=== PATIENT | male | born 1980 | race Caucasian/White ===

== ENCOUNTER 2018-06-14 15:22 | Emergency (ER) | payer SELFPAY ==
[2018-06-14] MEDS ORDERED: ONDANSETRON HCL INJ/PF 4 MG/2 ML SDV IV ONE ×2 (16:48→18:12)
[2018-06-14] MEDS ORDERED: METOCLOPRAMIDE HCL INJ/PF 10 MG/2 ML SDV IV ONE (16:48)
--- NOTE | 2018-06-14 16:49 | ER Document Report ---
ED Medical Screen (RME) - General Chief Complaint: Chest Pain Stated Complaint: CHEST PAIN, VOMITING, CONSTIPATED Time Seen by Provider: 06/14/18 16:38 Primary Care Provider: MELIZA FRAIRE MD [Primary Care Provider] - Follow up as needed Mode of Arrival: Wheelchair Information source: Patient Notes: This is a 38-year-old man who is brought into the emergency room by family because of nausea, vomiting, chest and abdominal pain. Patient states he awoke with symptoms this morning. Patient does have a past medical history of recurrent abdominal pain but is not been seen here recently. - Related Data Allergies/Adverse Reactions: oxycodone [Oxycodone] Allergy (Unknown, Verified 12/24/13 11:50) hydrocodone [Hydrocodone] Adverse Reaction (Mild, Verified 12/23/13 03:37) Nausea Past Medical History - Social History Chew tobacco use (# tins/day): No Frequency of alcohol use: None Drug Abuse: Marijuana - Past Medical History Cardiac Medical History: Denies: Hx Coronary Artery Disease, Hx Heart Attack, Hx Hypertension Pulmonary Medical History: Reports: Hx Asthma - as child Denies: Hx Bronchitis, Hx COPD, Hx Pneumonia, Hx Tuberculosis Neurological Medical History: Denies: Hx Cerebrovascular Accident, Hx Seizures Renal/ Medical History: Reports: Hx Kidney Stones. Denies: Hx Peritoneal Dialysis GI Medical History: Reports: Hx Crohn's Disease - undiagnnosed, Hx Gastroesophageal Reflux Disease, Hx Irritable Bowel Musculoskeltal Medical History: Denies Hx Arthritis Past Surgical History: Reports: Hx Abdominal Surgery. Denies: Hx Pacemaker, Hx Tonsillectomy - Immunizations Hx Diphtheria, Pertussis, Tetanus Vaccination: Yes Physical Exam - Vital signs Vitals: Temp Pulse Resp BP Pulse Ox 98.6 F 76 16 136/98 H 98 06/14/18 15:39 06/14/18 15:39 06/14/18 15:39 06/14/18 15:39 06/14/18 15:39 Course - Vital Signs Vital signs: Temp Pulse Resp BP Pulse Ox 98.6 F 76 16 136/98 H 98 06/14/18 15:39 06/14/18 15:39 06/14/18 15:39 06/14/18 15:39 06/14/18 15:39 Doctor's Discharge - Discharge Referrals: MELIZA FRAIRE MD [Primary Care Provider] - Follow up as needed
[2018-06-14] MEDS: NORMAL SALINE 1000 ML 1,000 ML IV PRN ×2 (17:08→18:49)
[2018-06-14 17:22] LABS: ABSOLUTE BASOPHILS # (AUTO) 0.1 10^3/uL (0.0-0.2); ABSOLUTE LYMPHOCYTES (AUTO) 1.2 10^3/uL (0.5-4.7); ABSOLUTE MONOCYTES (AUTO) 0.5 10^3/uL (0.1-1.4); ABSOLUTE NEUT (AUTO) 13.6 10^3/uL (1.7-8.2); BASOPHILS % (AUTO) 0.3 % (0-2); HEMATOCRIT 47.2 % (37.9-51.0); HEMOGLOBIN 16.4 g/dL (13.5-17.0); LYMPHOCYTES % (AUTO) 7.7 % (13-45); MEAN CORPUSCULAR HEMOGLOBIN 30.8 pg (27.0-33.4); MEAN CORPUSCULAR HGB CONC 34.7 g/dL (32.0-36.0); MEAN CORPUSCULAR VOLUME 89 fl (80-97); MONOCYTES % (AUTO) 3.4 % (3-13); PLATELET COUNT 335 10^3/uL (150-450); RED BLOOD COUNT 5.32 10^6/uL (4.35-5.55); SEGMENTED NEUTROPHILS % (AUTO) 88.6 % (42-78); TOTAL CELLS COUNTED % (AUTO) 100 %; WHITE BLOOD COUNT 15.3 10^3/uL (4.0-10.5)
[2018-06-14 17:54] LABS: APPEARANCE,URINE TURBID; BILIRUBIN,URINE SMALL (NEGATIVE); COLOR,URINE YELLOW; GLUCOSE, URINE NEGATIVE (NEGATIVE); KETONES,URINE 20 mg/dL (NEGATIVE); LEUKOCYTE ESTERASE,URINE NEGATIVE (NEGATIVE); NITRITE,URINE NEGATIVE (NEGATIVE); PROTEIN,URINE 100 mg/dL (NEGATIVE); URINE SPECIFIC GRAVITY 1.036
[2018-06-14 17:56] LABS: ALANINE AMINOTRANSFERASE 27 U/L (21-72); ALBUMIN 5.9 g/dL (3.5-5.0); ALKALINE PHOSPHATASE 76 U/L (38-126); ANION GAP 19 (5-19); ASPARTATE AMINO TRANSFERASE 32 U/L (17-59); BILIRUBIN,DIRECT 0.4 mg/dL (0.0-0.4); BILIRUBIN,TOTAL 0.9 mg/dL (0.2-1.3); BLOOD UREA NITROGEN 26 mg/dL (7-20); CALCIUM 11.5 mg/dL (8.4-10.2); CARBON DIOXIDE 22 mmol/L (22-30); CHLORIDE 102 mmol/L (98-107); GLUCOSE 160 mg/dL (75-110); LIPASE 23.6 U/L (23-300); SODIUM 143.1 mmol/L (137-145); TOTAL PROTEIN 9.9 g/dL (6.3-8.2)
[2018-06-14] MEDS ORDERED: FENTANYL CITRATE INJ/PF 100 MCG/2 ML AMPUL IV ONE (17:59)
--- NOTE | 2018-06-14 18:00 | ER Document Report ---
ED General - General Chief Complaint: Chest Pain Stated Complaint: CHEST PAIN, VOMITING, CONSTIPATED Time Seen by Provider: 06/14/18 16:38 Primary Care Provider: MELIZA FRAIRE MD [ACTIVE STAFF] - Follow up as needed Mode of Arrival: Wheelchair Notes: 38-year-old male to emergency with chief complaint of abdominal pain chest pain. Pain starts in the abdomen and radiates up in the chest. Nausea and vomiting. Diarrhea. States that he is concerned because he has had a bowel obstruction in the past. Fever and chills. Like he was going to pass out at home. Patient is here with his . - HPI Onset: This morning Onset/Duration: Gradual, Constant Quality of pain: Achy Severity: Moderate Pain Level: 3 Associated symptoms: Diarrhea, Fever, Nausea, Vomiting - Related Data Allergies/Adverse Reactions: oxycodone [Oxycodone] Allergy (Unknown, Verified 12/24/13 11:50) hydrocodone [Hydrocodone] Adverse Reaction (Mild, Verified 12/23/13 03:37) Nausea Past Medical History - General Information source: Patient - Social History Smoking Status: Current Every Day Smoker Chew tobacco use (# tins/day): No Frequency of alcohol use: None Drug Abuse: Marijuana Family History: Other - Intestinal problems Patient has suicidal ideation: No Patient has homicidal ideation: No - Past Medical History Cardiac Medical History: Denies: Hx Coronary Artery Disease, Hx Heart Attack, Hx Hypertension Pulmonary Medical History: Reports: Hx Asthma - as child Denies: Hx Bronchitis, Hx COPD, Hx Pneumonia, Hx Tuberculosis Neurological Medical History: Denies: Hx Cerebrovascular Accident, Hx Seizures Renal/ Medical History: Reports: Hx Kidney Stones. Denies: Hx Peritoneal Dialysis GI Medical History: Reports: Hx Crohn's Disease - undiagnnosed, Hx Gastroesophageal Reflux Disease, Hx Irritable Bowel Musculoskeletal Medical History: Denies Hx Arthritis Past Surgical History: Reports: Hx Abdominal Surgery. Denies: Hx Pacemaker, Hx Tonsillectomy - Immunizations Hx Diphtheria, Pertussis, Tetanus Vaccination: Yes Review of Systems - Review of Systems Constitutional: Fever. denies: Malaise, Weakness EENT: denies: Throat pain, Difficulty swallowing, Mouth pain Cardiovascular: Chest pain. denies: Palpitations, Heart racing Respiratory: denies: Cough, Hurts to breathe, Short of breath Gastrointestinal: Abdominal pain, Diarrhea, Nausea, Vomiting Genitourinary: denies: Burning, Dysuria, Discharge Musculoskeletal: denies: Back pain, Gout, Joint pain Skin: denies: Dryness, Lesions, Lumps, Rash Hematologic/Lymphatic: denies: Anemia, Blood clots, Easy bleeding, Easy bruising Neurological/Psychological: denies: Confusion, Weakness, Numbness Physical Exam - Vital signs Vitals: Temp Pulse Resp BP Pulse Ox 98.6 F 76 16 136/98 H 98 06/14/18 15:39 06/14/18 15:39 06/14/18 15:39 06/14/18 15:39 06/14/18 15:39 Interpretation: Normal - General General appearance: Appears well, Alert - HEENT Head: Normocephalic, Atraumatic Eyes: Normal Pupils: PERRL - Respiratory Respiratory status: No respiratory distress Chest status: Nontender Breath sounds: Normal Chest palpation: Normal - Cardiovascular Rhythm: Regular Heart sounds: Normal auscultation Murmur: No - Abdominal Inspection: Normal Distension: No distension Bowel sounds: Hyperactive Tenderness: Tender - Mild diffuse tenderness but no guarding or rebound. Organomegaly: No organomegaly - Back Back: Normal, Nontender - Extremities General upper extremity: Normal inspection, Nontender, Normal color, Normal ROM, Normal temperature General lower extremity: Normal inspection, Nontender, Normal color, Normal ROM, Normal temperature, Normal weight bearing. No: Miriam's sign - Neurological Neuro grossly intact: Yes Cognition: Normal Orientation: AAOx4 Cruz Coma Scale Eye Opening: Spontaneous Cruz Coma Scale Verbal: Oriented [place] Coma Scale Motor: Obeys Commands Cruz Coma Scale Total: 15 Speech: Normal Motor strength normal: LUE, RUE, LLE, RLE Sensory: Normal - Psychological Associated symptoms: Normal affect, Normal mood - Skin Skin Temperature: Warm Skin Moisture: Dry Skin Color: Normal Course - Re-evaluation Re-evalutation: 06/14/18 19:10 Laboratory 06/14/18 06/14/18 06/14/18 17:07 17:07 17:07 WBC 15.3 H RBC 5.32 Hgb 16.4 Hct 47.2 MCV 89 MCH 30.8 MCHC 34.7 RDW 14.0 Plt Count 335 Seg Neutrophils % 88.6 H Lymphocytes % 7.7 L Monocytes % 3.4 Eosinophils % 0.0 Basophils % 0.3 Absolute Neutrophils 13.6 H Absolute Lymphocytes 1.2 Absolute Monocytes 0.5 Absolute Eosinophils 0.0 Absolute Basophils 0.1 Sodium 143.1 Potassium 5.0 Chloride 102 Carbon Dioxide 22 Anion Gap 19 BUN 26 H Creatinine 1.28 H Est GFR ( Amer) > 60 Est GFR (Non-Af Amer) > 60 Glucose 160 H Calcium 11.5 H Total Bilirubin 0.9 Direct Bilirubin 0.4 Neonat Total Bilirubin Not Reportable Neonat Direct Bilirubin Not Reportable Neonat Indirect Bili Not Reportable AST 32 ALT 27 Alkaline Phosphatase 76 Troponin I < 0.012 Total Protein 9.9 H Albumin 5.9 H Lipase 23.6 Urine Color Urine Appearance Urine pH Ur Specific [place] Urine Protein Urine Glucose (UA) Urine Ketones Urine Blood Urine Nitrite Urine Bilirubin Urine Urobilinogen Ur Leukocyte Esterase Urine WBC (Auto) Urine RBC (Auto) Urine Bacteria (Auto) Squamous Epi Cells Auto Urine Mucus (Auto) Urine Ascorbic Acid Urine Opiates Screen Urine Methadone Screen Ur Barbiturates Screen Ur Phencyclidine Scrn Ur Amphetamines Screen U Benzodiazepines Scrn Urine Cocaine Screen U Marijuana (THC) Screen 06/14/18 06/14/18 17:20 17:20 WBC RBC Hgb Hct MCV MCH MCHC RDW Plt Count Seg Neutrophils % Lymphocytes % Monocytes % Eosinophils % Basophils % Absolute Neutrophils Absolute Lymphocytes Absolute Monocytes Absolute Eosinophils Absolute Basophils Sodium Potassium Chloride Carbon Dioxide Anion Gap BUN Creatinine Est GFR ( Amer) Est GFR (Non-Af Amer) Glucose Calcium Total Bilirubin Direct Bilirubin Neonat Total Bilirubin Neonat Direct Bilirubin Neonat Indirect Bili AST ALT Alkaline Phosphatase Troponin I Total Protein Albumin Lipase Urine Color YELLOW Urine Appearance TURBID Urine pH 5.0 Ur Specific [place] 1.036 Urine Protein 100 H Urine Glucose (UA) NEGATIVE Urine Ketones 20 H Urine Blood NEGATIVE Urine Nitrite NEGATIVE Urine Bilirubin SMALL H Urine Urobilinogen 4.0 H Ur Leukocyte Esterase NEGATIVE Urine WBC (Auto) 2 Urine RBC (Auto) 2 Urine Bacteria (Auto) 3+ Squamous Epi Cells Auto 2 Urine Mucus (Auto) MANY Urine Ascorbic Acid 40 H Urine Opiates Screen NEGATIVE Urine Methadone Screen NEGATIVE Ur Barbiturates Screen NEGATIVE Ur Phencyclidine Scrn NEGATIVE Ur Amphetamines Screen NEGATIVE U Benzodiazepines Scrn NEGATIVE Urine Cocaine Screen NEGATIVE U Marijuana (THC) Screen UNCONFIRMED POSITIVE 06/14/18 19:58 Patient is feeling much better. Has been drinking water while in the ER. A review of his records show that he has had at least [address] scan was initially ordered because of the oral contrast which is preferred by most of the surgeons here. I did this so that the patient does not have to have an unneeded amount of waiting in the event that we decided to do the CT scan. After realizing that the patient had had multiple CT scans I thought it would be best to have a informed decision making process with the patient as he is feeling better, drinking water and has not had any further vomiting. Patient states that he would feel better going home and he wants to go home and he would come back if he gets worse. Shortly after pts came back into the room. She became argumentative. She wanted to know why I was not doing a CT scan and then began making blanket statements that I was "sending him home", and "not taking him seriously". I tried to explain to the patient's that I was informing the patient of the risks and benefits of CT scan and giving him an option to see how things go over the next 24 hours which is proven to be an extremely effective way to decrease radiation exposure. I did finally ask that the please stop being so argumentative with me and I then focused all my attention on the patient. Patient still states that he feels much better and would like to go home. I spoke to him about 24-hour follow-up. He has requested some pain medicine to go home with. I stated that I do not feel comfortable giving him pain medication as I do not want him to be masking abdominal pain which needs to be reevaluated. I will send him home with nausea medication only. 06/14/18 22:24 06/14/18 22:26 - Vital Signs Vital signs: Temp Pulse Resp BP Pulse Ox 98.4 F 65 17 122/62 96 06/14/18 20:36 06/14/18 20:36 06/14/18 20:36 06/14/18 20:36 06/14/18 20:36 - Laboratory Result Diagrams: 06/14/18 17:07 06/14/18 17:07 Laboratory results interpreted by me: 06/14/18 06/14/18 06/14/18 17:07 17:07 17:20 WBC 15.3 H Seg Neutrophils % 88.6 H Lymphocytes % 7.7 L Absolute Neutrophils 13.6 H BUN 26 H Creatinine 1.28 H Glucose 160 H Calcium 11.5 H Total Protein 9.9 H Albumin 5.9 H Urine Protein 100 H Urine Ketones 20 H Urine Bilirubin SMALL H Urine Urobilinogen 4.0 H Urine Ascorbic Acid 40 H - EKG Interpretation by Me EKG shows normal: Sinus rhythm, [place], Intervals, QRS Complexes, ST-T Waves Discharge - Discharge Clinical Impression: Vomiting and diarrhea, Dehydration Abdominal pain Qualifiers: Abdominal location: unspecified location Qualified Code(s): R10.9 - Unspecified abdominal pain Condition: Good Disposition: HOME, SELF-CARE Instructions: Antinausea Medication ([facility]), Diarrhea, Nonspecific ([facility]), Nausea or Vomiting, Nonspecific ([facility]), Observation for Appendicitis ([facility]) Additional Instructions: You have been seen in the ER today for your nausea, vomiting, diarrhea and abdominal pain. Uncertain the exact cause at this time. We talked extensively about the pros and cons of a CT scan and you have decided that you would like to hold off on that at this time. As mentioned to you it is an acceptable plan at this time to see how you do over the next 12-24 hours. If your symptoms are getting worse in the next 12-24 hours you should return for repeat evaluation. At that time a CT scan may seem like a more obvious choice. Abdominal pain workups can be very difficult to figure out. Our job in the emergency department is to rule out emergencies. You do not appear to have a surgical emergency at this time however things can change. You may take the nausea medication as needed for nausea and vomiting. Advance your diet slowly. Focus only on water and clear liquids today. You may take Tylenol for pain. Do not exceed 3 g in a 24-hour period. In the event that you begin having blood in your stool, vomiting bright red blood for any other concerns please return as well. Referrals: MELIZA FRAIRE MD [ACTIVE STAFF] - Follow up as needed
[2018-06-14] MEDS ORDERED: FAMOTIDINE INJ/PF 20 MG/2 ML SDV IV ONE (18:12)
[2018-06-14 18:35] LABS: URINE AMPHETAMINES SCREEN NEGATIVE; URINE BARBITURATES SCREEN NEGATIVE; URINE BENZODIAZEPINES SCREEN NEGATIVE; URINE COCAINE SCREEN NEGATIVE; URINE MARIJUANA (THC) SCREEN UNCONFIRMED POSITIVE; URINE METHADONE SCREEN NEGATIVE; URINE PHENCYCLIDINE SCREEN NEGATIVE
--- NOTE | 2018-06-14 19:03 | RADIOLOGY REPORT (SQ) ---
EXAM DESCRIPTION: ACUTE ABDOMEN SERIES COMPLETED DATE/TIME: 06/14/2018 6:47 pm REASON FOR STUDY: abd pain COMPARISON: 12/25/2013 NUMBER OF VIEWS: Three views. TECHNIQUE: Frontal chest, supine abdomen and upright/decubitus abdomen radiographic images acquired. LIMITATIONS: None. FINDINGS: CHEST: Lungs clear of infiltrates. FREE AIR: None. No abnormal gas collections. BOWEL GAS PATTERN: Nonobstructive pattern. No dilated loops or air fluid levels. CALCIFICATIONS: No suspicious calcifications. HARDWARE: None in the abdomen. SOFT TISSUES: No gross mass or suggestion of organomegaly. BONES: No acute fracture. No worrisome bone lesions. OTHER: No other significant finding. IMPRESSION: NO RADIOGRAPHIC EVIDENCE FOR ACUTE ABDOMINAL DISEASE. TECHNICAL DOCUMENTATION: JOB ID: [id number])- All Rights Reserved Reading location - IP/workstation name: [email or web address]
[2018-06-14] MEDS ORDERED: ONDANSETRON ODT 4 MG TAB (6 TAB/ER DISP) PO PRN (20:24)
[2018-06-14 20:38] VITALS: BP 122/62
--- NOTE | 2018-06-14 20:51 | EKG REPORT ---
SEVERITY:- NORMAL ECG - SINUS RHYTHM : Confirmed by: Amy Valenzuela MD 14-Jun-2018 20:50:39
== END 2018-06-14 21:00 | disposition home or self-care (01) ==
LOC: ER 15:22
DX: E86.0 Dehydration (principal); R11.2 Nausea with vomiting, unspecified; R19.7 Diarrhea, unspecified; R10.9 Unspecified abdominal pain; R07.9 Chest pain, unspecified; R50.9 Fever, unspecified; F17.200 Nicotine dependence, unspecified, uncomplicated
CPT/HCPCS: 93005; 96376; 99284; 96361; 96374; 96375; 36415; 83690; 85025; 80053; 81001; 84484; 80307; 74022; 93010; J3010; J2765; J2405; J7030; S0028

== ENCOUNTER 2018-12-02 21:05 | Emergency (ER) | payer OTHER ==
[2018-12-02] MEDS ORDERED: ONDANSETRON HCL INJ/PF 4 MG/2 ML SDV IV ONE (23:20)
[2018-12-02] MEDS ORDERED: NORMAL SALINE 1000 ML 1,000 ML IV ONE (23:20)
--- NOTE | 2018-12-02 23:22 | ER Document Report ---
ED Medical Screen (RME) - General Chief Complaint: Chest Pain Stated Complaint: CHEST PAIN,VOMITING,NAUSEA Time Seen by Provider: 12/02/18 23:16 Mode of Arrival: Wheelchair Information source: Patient Notes: 38-year-old male presented to ED for complaint of chest pain with nausea and vomiting x2 days. He states he has vomited multiple times and had one diarrheal stool today. states that while he was in the emergency room he was shaking for about 10 or 15 seconds but then was better after about 10 or 15 seconds. She states he is having cramping in his arms and legs very fatigue. She states he has a history of reflux and an intestinal obstruction where he had to have part of his intestines removed. She states he smokes 15 to 20 cigarettes a day does not drink or do any drugs. Patient is alert oriented answering. I have greeted and performed a rapid initial assessment of this patient. A comprehensive ED assessment and evaluation of the patient, analysis of test results and completion of medical decision making process will be conducted by an additional ED providers. TRAVEL OUTSIDE OF THE [place] IN LAST 30 DAYS: No - Related Data Allergies/Adverse Reactions: oxycodone [Oxycodone] Allergy (Unknown, Verified 12/24/13 11:50) hydrocodone [Hydrocodone] Adverse Reaction (Mild, Verified 12/23/13 03:37) Nausea Past Medical History - Past Medical History Cardiac Medical History: Denies: Hx Coronary Artery Disease, Hx Heart Attack, Hx Hypertension Pulmonary Medical History: Reports: Hx Asthma - as child Denies: Hx Bronchitis, Hx COPD, Hx Pneumonia, Hx Tuberculosis Neurological Medical History: Denies: Hx Cerebrovascular Accident, Hx Seizures Renal/ Medical History: Reports: Hx Kidney Stones. Denies: Hx Peritoneal Dialysis GI Medical History: Reports: Hx Crohn's Disease - undiagnnosed, Hx Gastroesophageal Reflux Disease, Hx Irritable Bowel Musculoskeltal Medical History: Denies Hx Arthritis Past Surgical History: Reports: Hx Abdominal Surgery. Denies: Hx Pacemaker, Hx Tonsillectomy - Immunizations Hx Diphtheria, Pertussis, Tetanus Vaccination: Yes Physical Exam - Vital signs Vitals: Temp Pulse Resp BP Pulse Ox 98.3 F 80 16 144/80 H 95 12/02/18 21:25 12/02/18 21:25 12/02/18 21:25 12/02/18 21:25 12/02/18 21:25 Course - Vital Signs Vital signs: Temp Pulse Resp BP Pulse Ox 98.3 F 80 16 144/80 H 95 12/02/18 21:25 12/02/18 21:25 12/02/18 21:25 12/02/18 21:25 12/02/18 21:25
--- NOTE | 2018-12-03 | RADIOLOGY REPORT (SQ) ---
XR CHEST 2 VIEWS EXAM DATE: 12/02/2018 11:20 PM CDT HISTORY: Chest pain . COMPARISON: None. FINDINGS: The heart size is within normal limits. No consolidation, pleural effusion, or pneumothorax is seen. The bony thorax is intact. IMPRESSION: No evidence of acute cardiopulmonary disease.
[2018-12-03 00:37] LABS: ABSOLUTE BASOPHILS # (AUTO) 0.1 10^3/uL (0.0-0.2); ABSOLUTE LYMPHOCYTES (AUTO) 1.9 10^3/uL (0.5-4.7); ABSOLUTE MONOCYTES (AUTO) 1.4 10^3/uL (0.1-1.4); ABSOLUTE NEUT (AUTO) 13.6 10^3/uL (1.7-8.2); BASOPHILS % (AUTO) 0.4 % (0-2); HEMATOCRIT 47.7 % (37.9-51.0); HEMOGLOBIN 16.5 g/dL (13.5-17.0); LYMPHOCYTES % (AUTO) 11.1 % (13-45); MEAN CORPUSCULAR HEMOGLOBIN 30.5 pg (27.0-33.4); MEAN CORPUSCULAR HGB CONC 34.5 g/dL (32.0-36.0); MEAN CORPUSCULAR VOLUME 88 fl (80-97); MONOCYTES % (AUTO) 8.1 % (3-13); PLATELET COUNT 326 10^3/uL (150-450); RED BLOOD COUNT 5.41 10^6/uL (4.35-5.55); RED CELL DISTRIBUTION WIDTH 13.4 % (11.5-14.0); SEGMENTED NEUTROPHILS % (AUTO) 80.4 % (42-78); TOTAL CELLS COUNTED % (AUTO) 100 %; WHITE BLOOD COUNT 16.9 10^3/uL (4.0-10.5)
[2018-12-03 00:54] LABS: ALBUMIN 5.7 g/dL (3.5-5.0); ALKALINE PHOSPHATASE 60 U/L (38-126); ANION GAP 17 (5-19); ASPARTATE AMINO TRANSFERASE 32 U/L (17-59); BILIRUBIN,DIRECT 0.2 mg/dL (0.0-0.4); BILIRUBIN,TOTAL 1.2 mg/dL (0.2-1.3); BLOOD UREA NITROGEN 50 mg/dL (7-20); CALCIUM 10.7 mg/dL (8.4-10.2); CARBON DIOXIDE 29 mmol/L (22-30); CHLORIDE 89 mmol/L (98-107); CREATINE KINASE 264 U/L (55-170); GLUCOSE 118 mg/dL (75-110); POTASSIUM 4.5 mmol/L (3.6-5.0); TOTAL PROTEIN 9.2 g/dL (6.3-8.2)
[2018-12-03 01:06] LABS: CREATINE KINASE MB 2.55 ng/mL (<4.55); TROPONIN I < 0.012 ng/mL
[2018-12-03 01:15] LABS: APPEARANCE,URINE CLEAR; BILIRUBIN,URINE NEGATIVE (NEGATIVE); COLOR,URINE YELLOW; GLUCOSE, URINE NEGATIVE (NEGATIVE); KETONES,URINE NEGATIVE (NEGATIVE); LEUKOCYTE ESTERASE,URINE NEGATIVE (NEGATIVE); NITRITE,URINE NEGATIVE (NEGATIVE); PROTEIN,URINE 30 mg/dL (NEGATIVE); URINE SPECIFIC GRAVITY 1.029; UROBILINOGEN,URINE NEGATIVE mg/dL (<2.0)
[2018-12-03 01:30] LABS: URINE AMPHETAMINES SCREEN NEGATIVE; URINE BARBITURATES SCREEN NEGATIVE; URINE BENZODIAZEPINES SCREEN NEGATIVE; URINE COCAINE SCREEN NEGATIVE; URINE MARIJUANA (THC) SCREEN UNCONFIRMED POSITIVE; URINE METHADONE SCREEN NEGATIVE; URINE PHENCYCLIDINE SCREEN NEGATIVE
[2018-12-03] MEDS ORDERED: NORMAL SALINE 1000 ML 1,000 ML IV ONE (01:31)
[2018-12-03] MEDS ORDERED: FENTANYL CITRATE INJ/PF 100 MCG/2 ML AMPUL IV ONE ×2 (01:39→04:31)
--- NOTE | 2018-12-03 01:47 | ER Document Report ---
ED General - General Chief Complaint: Chest Pain Stated Complaint: CHEST PAIN,VOMITING,NAUSEA Time Seen by Provider: 12/02/18 23:16 Primary Care Provider: MOHIT CH FNP-C [Primary Care Provider] - Follow up as needed Mode of Arrival: Wheelchair Notes: Patient is a 38-year-old male that presents to the emergency department for chief complaint of abdominal pain, nausea, vomiting diarrhea. Patient states that he has been having symptoms for a few days now, and has had several ep isodes of vomiting, and loose stools. His pain is worse in the right upper quadrant of his abdomen, he states it rather sharp in that area with radiation towards the back. He states he is had problems with his abdomen in the past, and had surgery with a partial bowel resection in the past as well. He used to see a handbag stitcher, but is been a few years, is currently only taking Prilosec 20 mg twice daily, denies any other daily prescribed medications. He currently rates his pain as a 10 out of 10 describes as constant and aching and sharp as noted above. He denies having any blood in the vomit or stool. He also reports he has had about a 30 pound weight loss over the last 6 months, he has not had a good appetite. Past Medical History: GERD Past Surgical History: Partial bowel resection Social History: Admits to smoking cigarettes, denies alcohol use or illicit drug use Family History: Reviewed and noncontributory for presenting illness Allergies: Reviewed, see documented allergy list. REVIEW OF SYSTEMS: Other than noted above, the 12 point review of systems was reviewed with the patient and were negative, all pertinent findings are included in the HPI. PHYSICAL EXAMINATION: Vital signs reviewed, nursing noted reviewed. GENERAL: Well-appearing, well-nourished and in no acute distress. HEAD: Atraumatic, normocephalic. EYES: Eyes appear normal, extraocular movements intact, sclera anicteric, conjunctiva are normal. ENT: nares patent, oropharynx clear without exudates. Moist mucous membranes. NECK: Normal range of motion, supple without lymphadenopathy LUNGS: Breath sounds clear to auscultation bilaterally and equal. No wheezes rales or rhonchi. HEART: Regular rate and rhythm without murmurs ABDOMEN: Soft, right upper quadrant tenderness to palpation, no rigidity, rebound or guarding., normoactive bowel sounds. EXTREMITIES: Nontender, good range of motion, no pitting or edema. NEUROLOGICAL: No focal neurological deficits. Moves all extremities spontaneously Motor and sensory grossly intact on exam. PSYCH: Normal mood, normal affect. SKIN: Warm, Dry, normal turgor, no rashes or lesions noted on exposed skin x TRAVEL OUTSIDE OF THE [place] IN LAST 30 DAYS: No - Related Data Allergies/Adverse Reactions: oxycodone [Oxycodone] Allergy (Unknown, Verified 12/24/13 11:50) hydrocodone [Hydrocodone] Adverse Reaction (Mild, Verified 12/23/13 03:37) Nausea Past Medical History - General Information source: Patient - Social History Smoking Status: Current Every Day Smoker Family History: Reviewed & Not Pertinent, Other - Intestinal problems - Past Medical History Cardiac Medical History: Denies: Hx Coronary Artery Disease, Hx Heart Attack, Hx Hypertension Pulmonary Medical History: Reports: Hx Asthma - as child Denies: Hx Bronchitis, Hx COPD, Hx Pneumonia, Hx Tuberculosis Neurological Medical History: Denies: Hx Cerebrovascular Accident, Hx Seizures Renal/ Medical History: Reports: Hx Kidney Stones. Denies: Hx Peritoneal Dialysis GI Medical History: Reports: Hx Crohn's Disease - undiagnnosed, Hx Gastroesophageal Reflux Disease, Hx Irritable Bowel Musculoskeletal Medical History: Denies Hx Arthritis Past Surgical History: Reports: Hx Abdominal Surgery. Denies: Hx Pacemaker, Hx Tonsillectomy - Immunizations Hx Diphtheria, Pertussis, Tetanus Vaccination: Yes Physical Exam - Vital signs Vitals: Temp Pulse Resp BP Pulse Ox 98.3 F 80 16 144/80 H 95 12/02/18 21:25 12/02/18 21:25 12/02/18 21:25 12/02/18 21:25 12/02/18 21:25 Course - Re-evaluation Re-evalutation: Patient seen and examined vital signs reviewed. Laboratory data and/or imaging were ordered as appropriate for the patient's presenting symptoms and complaint, with consideration of any critical or life threatening conditions that may be associated with their obtained history and exam as noted above. Patient was treated with IV fluids, IV analgesics and antiemetics Results were reviewed when available and demonstrated negative ultrasound right upper quadrant, and blood work demonstrated mild acute kidney injury, likely due to dehydration, increased BUN compared to creatinine, likely secondary to his nausea, vomiting diarrhea, he was given 3 L of IV fluids, CT imaging demonstrated possible pericholecystic fluid, as compared to prior, after discussing with the surgeon and came down to see him, did not feel that this was an acute abdomen or acute cholecystitis, which I agreed with after reviewing a negative ultrasound, and no other findings concerning for acute cholecystitis, he did have a leukocytosis, but this could be acute stress reactant, from vomiting. The patient was re-evaluated and was stable, speaking full sentences, did not appear in to be in any acute distress, he was asking for additional pain medication, and bring up other complaints, he told me his testicle is causing him pain, and was asking for additional doses of pain medication, did examine his testicles, there was no swelling, ecchymosis, or edema, there is no significant tenderness to palpation, bilateral horizontal lie. Evaluation was most consistent with abdominal pain, nausea, vomiting diarrhea, advised follow-up with his primary care, and gastroneurology, given referral, given prescription for Carafate and Zofran. Results were discussed with the patient at this point, after careful consideration I feel that that patient can be discharged from the emergency department, the patient was educated treatments and reasons to return to the emergency department based on their presumed diagnosis as noted above, they were advised to followup with a primary care physician in 2-3 days. Patient was agreeable to plan of care. *Note is created using voice recognition software and may contain spelling, syntax or grammatical errors. Laboratory 12/03/18 12/03/18 12/03/18 00:20 00:20 00:20 WBC 16.9 H RBC 5.41 Hgb 16.5 Hct 47.7 MCV 88 MCH 30.5 MCHC 34.5 RDW 13.4 Plt Count 326 Lymph % (Auto) 11.1 L [place] % (Auto) 8.1 Eos % (Auto) 0.0 Baso % (Auto) 0.4 Absolute Neuts (auto) 13.6 H Absolute Lymphs (auto) 1.9 Absolute Monos (auto) 1.4 Absolute Eos (auto) 0.0 Absolute Basos (auto) 0.1 Seg Neutrophils % 80.4 H Sodium 134.8 L Potassium 4.5 Chloride 89 L Carbon Dioxide 29 Anion Gap 17 BUN 50 H Creatinine 1.48 H Est GFR ( Amer) > 60 Est GFR (MDRD) Non-Af 54 L Glucose 118 H Calcium 10.7 H Total Bilirubin 1.2 Direct Bilirubin 0.2 Neonat Total Bilirubin Not Reportable Neonat Direct Bilirubin Not Reportable Neonat Indirect Bili Not Reportable AST 32 ALT 26 Alkaline Phosphatase 60 Creatine Kinase 264 H CK-MB (CK-2) 2.55 Troponin I < 0.012 Total Protein 9.2 H Albumin 5.7 H Lipase 22.5 L Urine Color Urine Appearance Urine pH Ur Specific [place] Urine Protein Urine Glucose (UA) Urine Ketones Urine Blood Urine Nitrite Urine Bilirubin Urine Urobilinogen Ur Leukocyte Esterase Urine WBC (Auto) Urine RBC (Auto) U Hyaline Cast (Auto) Urine Mucus (Auto) Urine Ascorbic Acid Urine Opiates Screen Urine Methadone Screen Ur Barbiturates Screen Ur Phencyclidine Scrn Ur Amphetamines Screen U Benzodiazepines Scrn Urine Cocaine Screen U Marijuana (THC) Screen 12/03/18 12/03/18 00:50 00:50 WBC RBC Hgb Hct MCV MCH MCHC RDW Plt Count Lymph % (Auto) [place] % (Auto) Eos % (Auto) Baso % (Auto) Absolute Neuts (auto) Absolute Lymphs (auto) Absolute Monos (auto) Absolute Eos (auto) Absolute Basos (auto) Seg Neutrophils % Sodium Potassium Chloride Carbon Dioxide Anion Gap BUN Creatinine Est GFR ( Amer) Est GFR (MDRD) Non-Af Glucose Calcium Total Bilirubin Direct Bilirubin Neonat Total Bilirubin Neonat Direct Bilirubin Neonat Indirect Bili AST ALT Alkaline Phosphatase Creatine Kinase CK-MB (CK-2) Troponin I Total Protein Albumin Lipase Urine Color YELLOW Urine Appearance CLEAR Urine pH 5.0 Ur Specific [place] 1.029 Urine Protein 30 H Urine Glucose (UA) NEGATIVE Urine Ketones NEGATIVE Urine Blood NEGATIVE Urine Nitrite NEGATIVE Urine Bilirubin NEGATIVE Urine Urobilinogen NEGATIVE Ur Leukocyte Esterase NEGATIVE Urine WBC (Auto) 1 Urine RBC (Auto) 1 U Hyaline Cast (Auto) 3 Urine Mucus (Auto) OCC Urine Ascorbic Acid NEGATIVE Urine Opiates Screen NEGATIVE Urine Methadone Screen NEGATIVE Ur Barbiturates Screen NEGATIVE Ur Phencyclidine Scrn NEGATIVE Ur Amphetamines Screen NEGATIVE U Benzodiazepines Scrn NEGATIVE Urine Cocaine Screen NEGATIVE U Marijuana (THC) Screen UNCONFIRMED POSITIVE Chest X-Ray 12/02/18 23:20 IMPRESSION: No evidence of acute cardiopulmonary disease. Abdomen Ultrasound 12/03/18 01:40 IMPRESSION: Normal RUQ-Abdominal Sonogram. Abdomen/Pelvis CT 12/03/18 03:53 IMPRESSION: Moderate pericholecystic fluid, nonspecific. Differential etiologies include cholecystitis. Consider laboratory/sonographic correlation. - Vital Signs Vital signs: Temp Pulse Resp BP Pulse Ox 98.3 F 80 16 144/80 H 95 12/02/18 21:25 12/02/18 21:25 12/02/18 21:25 12/02/18 21:25 12/02/18 21:25 - Laboratory Result Diagrams: 12/03/18 00:20 12/03/18 00:20 Laboratory results interpreted by me: 12/03/18 12/03/18 12/03/18 00:20 00:20 00:50 WBC 16.9 H Lymph % (Auto) 11.1 L Absolute Neuts (auto) 13.6 H Seg Neutrophils % 80.4 H Sodium 134.8 L Chloride 89 L BUN 50 H Creatinine 1.48 H Est GFR (MDRD) Non-Af 54 L Glucose 118 H Calcium 10.7 H Creatine Kinase 264 H Total Protein 9.2 H Albumin 5.7 H Lipase 22.5 L Urine Protein 30 H - EKG Interpretation by Me Additional EKG results interpreted by me: EKG demonstrates sinus rhythm with a ventricular rate of 67 bpm, normal axis, normal intervals, no evidence of acute ischemia in this EKG, compared to prior EKG from 06/14/2018, without significant change. Discharge - Discharge Clinical Impression: SEAN (acute kidney injury) Abdominal pain Qualifiers: Abdominal location: unspecified location Qualified Code(s): R10.9 - Unspecified abdominal pain Leukocytosis Qualifiers: Leukocytosis type: unspecified Qualified Code(s): D72.829 - Elevated white blood cell count, unspecified Condition: Stable Disposition: HOME, SELF-CARE Instructions: Abdominal Pain ([facility]) Additional Instructions: Please follow-up with your primary care physician, recommend that you follow-up with gastroenterology, with Dr. Meyers, that you have seen in the past, I have also referred you to our lining caser to help with financial assistance. I prescribed the medication to help with your symptoms overall, including a medicine for nausea, and one to help protect the lining of your stomach, I recommend you increase the dose of your omeprazole, to 2 tablets twice daily, and follow-up with your primary care. Prescriptions: Sucralfate [Carafate 1 gm Tablet] 1 gm PO ACHS #120 tablet Ondansetron [Zofran Odt 4 mg Tablet] 1 tab PO Q8H PRN #15 tab.rapdis PRN Reason: For Nausea/Vomiting Referrals: MADHAVI STRATTON MD [ACTIVE STAFF] - Follow up in 3-5 days MOHIT CH FNP-C [Primary Care Provider] - Follow up in 3-5 days
--- NOTE | 2018-12-03 03:15 | RADIOLOGY REPORT (SQ) ---
EXAM DESCRIPTION: US ABDOMEN LIMITED COMPLETED DATE/TME: 12/03/2018 01:40 CLINICAL HISTORY: 38 years Male, ruq abdominal pain, vomiting Comparison:Dec 17 2013 LIMITATIONS: None. FINDINGS: Gallbladder, negative sonographic Mccray's test, liver, a 0.2-cm diameter common bile duct, no intrahepatic ductal dilation, hepatopetal patent flow of the portal vein, 11-cm right kidney, pancreas, visualized vasculature/abdominal aorta, and no significant ascites appear otherwise unremarkable. IMPRESSION: Normal RUQ-Abdominal Sonogram.
[2018-12-03] MEDS ORDERED: ONDANSETRON HCL INJ/PF 4 MG/2 ML SDV ONE (03:18)
[2018-12-03] MEDS ORDERED: ONDANSETRON HCL INJ/PF 4 MG/2 ML SDV IV ONE (04:32)
--- NOTE | 2018-12-03 05:47 | RADIOLOGY REPORT (SQ) ---
EXAM DESCRIPTION: CT ABDOMEN PELVIS WITH IV CONTRAST COMPLETED DATE/TME: 12/03/2018 03:53 CLINICAL HISTORY: 38 years Male, right sided abdominal pain Comparison:Dec 24, CT and US Technique: IV contrast. Coronal and sagittal reformat. This exam was performed according to our departmental dose-optimization program, which includes automated exposure control, adjustment of the mA and/or kV according to patient size and/or use of iterative reconstruction technique. [facility]: Dose Right [facility]: CareDose [facility]: Dose Right [facility]: Teradose 4D [facility]: AutoMedx LIMITATIONS: None Findings: Moderate pericholecystic fluid. Colonic diverticulosis. Normal appendix. L5-S1 vacuum disc desiccation. Small L5-S1 disc bulge-osteophyte complex including mild/moderate bilateral L5 foraminal stenosis. 0.2 cm degenerative L5 retrolisthesis. Likely benign, low-attenuation hepatic lesion(s) not definitively characterized, stable. No ascites. No pneumoperitoneum. Normal appendix. No bowel obstruction. No hydronephrosis or hydroureter. No renal/ureteral stone. No evidence of abdominal aortic aneurysm. Inferior thorax, remaining gallbladder, pancreas, spleen, adrenals, renal system, gastrointestinal tract, pelvic organs, lymphatics, vasculature, and musculoskeleton appear otherwise unremarkable. IMPRESSION: Moderate pericholecystic fluid, nonspecific. Differential etiologies include cholecystitis. Consider laboratory/sonographic correlation.
[2018-12-03] MEDS ORDERED: RINGERS SOLUTION,LACTATED 1,000 ML IV ONE (06:26)
--- NOTE | 2018-12-03 06:59 | EKG REPORT ---
SEVERITY:- NORMAL ECG - SINUS RHYTHM : Confirmed by: Damian Macias MD 03-Dec-2018 06:58:24
--- NOTE | 2018-12-03 07:22 | PDOC CONSULTATION ---
Consultation Consult Date: 12/03/18 Provider Consulted: MADHU BARBOUR Consult reason:: Abdominal pain nausea vomiting diarrhea History of Present Illness Admission Date/PCP: DOMINIQUE [place] History of Present Illness: STEPHANE JORGE is a 38 year old male Who comes to the emergency department via ground rescue complaining of exacerbation of nausea vomiting and diarrhea. Patient has a history in 2011 and 2013 of similar complaints, with extensive work-up including upper and lower endoscopy by Dr. Metzger in 2013 which was negative. He also underwent diagnostic laparoscopy by Dr. Lieberman 2011 with unremarkable findings except for an adhesive band. Patient is carried the diagnosis of irritable bowel syndrome is never been followed consistently by video software engineer. Patient reports he has lost, but his figures are not consistent. He does not have a regular medical doctor but reviewing his medications he has an omeprazole prescription Dr. Cathie Pittman. He is now in the emergency department complaining of persisting abdominal pain. He has an elevated white blood cell count no evidence of acute renal insufficiency which she has had in the past as well. CT scan of the abdomen without oral contrast shows no significant findings except possible pericholecystic fluid. Subsequent ultrasound of the gallbladder read as normal. Surgery was consulted. Past Medical History Medical History: None Cardiac Medical History: Denies: Coronary Artery Disease, Myocardial Infarction, Hypertension Pulmonary Medical History: Reports: Asthma - as child Denies: Bronchitis, Chronic Obstructive Pulmonary Disease (COPD), Pneumonia, Tuberculosis Neurological Medical History: Denies: Seizures GI Medical History: Reports: Crohn's Disease - undiagnnosed, Gastroesophageal Reflux Disease Musculoskeltal Medical History: Denies: Arthritis Hematology: Denies: Anemia Past Surgical History Past Surgical History: Diagnostic laparoscopy, lysis of adhesion 2011 Past Surgical History: Denies: Pacemaker, Tonsillectomy Social History Information Source: Patient Smoking Status: Unknown if Ever Smoked Frequency of Alcohol Use: None Hx Recreational Drug Use: No Drugs: Marijuana Hx Prescription Drug Abuse: No Family History Family History: None, Other - Intestinal problems Parental Family History Reviewed: No Children Family History Reviewed: No Sibling(s) Family History Reviewed.: No Medication/Allergy Home Medications: Ondansetron [Zofran Odt 4 mg Tablet] 1 tab PO Q8H PRN #15 tab.rapdis 12/03/18 Sucralfate [Carafate 1 gm Tablet] 1 gm PO ACHS #120 tablet 12/03/18 Allergies/Adverse Reactions: oxycodone [Oxycodone] Allergy (Unknown, Verified 12/24/13 11:50) hydrocodone [Hydrocodone] Adverse Reaction (Mild, Verified 12/23/13 03:37) Nausea Review of Systems Constitutional: PRESENT: as per HPI Eyes: ABSENT: visual disturbances Ears: ABSENT: hearing changes Cardiovascular: ABSENT: chest pain, dyspnea on exertion, edema, orthropnea, palpitations Respiratory: ABSENT: cough, hemoptysis Gastrointestinal: PRESENT: as per HPI Neurological: ABSENT: abnormal gait, abnormal speech, confusion, dizziness, focal weakness, syncope Psychiatric: ABSENT: anxiety, depression, homidical ideation, suicidal ideation Endocrine: ABSENT: cold intolerance, heat intolerance, polydipsia, polyuria Physical Exam Vital Signs: Temp Pulse Resp BP Pulse Ox 98.3 F 80 16 144/80 H 95 12/02/18 21:25 12/02/18 21:25 12/02/18 21:25 12/02/18 21:25 12/02/18 21:25 Intake & Output 12/01/18 12/02/18 12/03/18 06:59 06:59 06:59 Intake Total 1999 Balance 1999 Weight 73.7 kg General appearance: PRESENT: no acute distress Head exam: PRESENT: normocephalic Neck exam: PRESENT: full ROM Respiratory exam: PRESENT: clear to auscultation loly Cardiovascular exam: PRESENT: RRR Pulses: PRESENT: normal carotid pulses, normal radial pulses, normal femoral pulses GI/Abdominal exam: PRESENT: other - Abdomen soft, tender in the epigastric area. There is no rigidity no abdominal distention. Rectal exam: PRESENT: deferred Extremities exam: PRESENT: full ROM Musculoskeletal exam: PRESENT: ambulatory Neurological exam: PRESENT: awake, oriented to person, oriented to place, oriented to time, oriented to situation Results Laboratory Results: 12/03/18 00:20 12/03/18 00:20 12/03/18 12/03/18 12/03/18 00:20 00:20 00:50 WBC 16.9 H RBC 5.41 Hgb 16.5 Hct 47.7 MCV 88 MCH 30.5 MCHC 34.5 RDW 13.4 Plt Count 326 Seg Neutrophils % 80.4 H Sodium 134.8 L Potassium 4.5 Chloride 89 L Carbon Dioxide 29 Anion Gap 17 BUN 50 H Creatinine 1.48 H Est GFR ( Amer) > 60 Glucose 118 H Calcium 10.7 H Total Bilirubin 1.2 AST 32 Alkaline Phosphatase 60 Total Protein 9.2 H Albumin 5.7 H Lipase 22.5 L Urine Color YELLOW Urine Appearance CLEAR Urine pH 5.0 Ur Specific [place] 1.029 Urine Protein 30 H Urine Glucose (UA) NEGATIVE Urine Ketones NEGATIVE Urine Blood NEGATIVE Urine Nitrite NEGATIVE Ur Leukocyte Esterase NEGATIVE Urine WBC (Auto) 1 Urine RBC (Auto) 1 12/03/18 12/03/18 00:20 00:20 Creatine Kinase 264 H CK-MB (CK-2) 2.55 Troponin I < 0.012 Impressions: Chest X-Ray 12/02/18 23:20 IMPRESSION: No evidence of acute cardiopulmonary disease. Abdomen Ultrasound 12/03/18 01:40 IMPRESSION: Normal RUQ-Abdominal Sonogram. Abdomen/Pelvis CT 12/03/18 03:53 IMPRESSION: Moderate pericholecystic fluid, nonspecific. Differential etiologies include cholecystitis. Consider laboratory/sonographic correlation. Assessment & Plan - Diagnosis (1) Abdominal pain Qualifiers: Abdominal location: unspecified location Qualified Code(s): R10.9 - Unspecified abdominal pain Is this a current diagnosis for this admission?: Yes Plan: Impression: Acute superimposed on chronic abdominal pain nausea vomiting and diarrhea, with associated weight loss. No evidence of acute abdomen, therefore no need for surgical intervention. Low suspicion for cholecystitis. Plan: 1. Discussed my assessment and recommendations with Dr. Dover in the emergency room physician. Agreed to further resuscitate patient in follow-up with medical service. 2. Reconsult surgery if clinically indicated. (2) Vomiting Is this a current diagnosis for this admission?: Yes (3) Dehydration Is this a current diagnosis for this admission?: Yes (4) Weight loss Is this a current diagnosis for this admission?: Yes - Time Time Spent: 30 to 50 Minutes Smoking Cessation Education: 3 to 10 minutes Medications reviewed and adjusted accordingly: Yes
[2018-12-03 09:28] VITALS: BP 126/65
== END 2018-12-03 09:30 | disposition home or self-care (01) ==
LOC: ER 21:05
DX: N17.9 Acute kidney failure, unspecified (principal); R10.9 Unspecified abdominal pain; D72.829 Elevated white blood cell count, unspecified; R07.9 Chest pain, unspecified; R11.2 Nausea with vomiting, unspecified; R19.7 Diarrhea, unspecified; R10.11 Right upper quadrant pain; F17.210 Nicotine dependence, cigarettes, uncomplicated; J45.909 Unspecified asthma, uncomplicated
CPT/HCPCS: 93005; 36415; 82553; 82550; 83690; 85025; 80053; 81001; 84484; 80307; 71046; 76705; 74177; 93010; J3010; J2405; J7030; J7120; 96361; 96374; 96375; 96376; 99285

== ENCOUNTER 2018-12-10 11:06 | Day surgery (SDC) | payer OTHER ==
[2018-12-10] MEDS ORDERED: PROPOFOL INJ 200 MG/20 ML VIAL IV ONE (12:10)
--- NOTE | 2018-12-10 14:38 | Operative Report ---
Operative Report DATE OF SURGERY: 12/10/18 Operative Report: The risks benefits and alternatives of the procedure explained to the patient in detail and informed consent is obtained.A GIF Olympus video scope was inserted into the patient's mouth and hypopharynx, the esophagus is identified intubated and insufflated ,the scope was then advanced through the esophagus stomach and duodenum, retroflexion maneuver is done ,the esophagus stomach and first and second portions of the duodenum examined. PREOPERATIVE DIAGNOSIS: Epigastric pain rule out peptic ulcer disease POSTOPERATIVE DIAGNOSIS: Gastritis status post biopsy rule out Helicobacter pylori OPERATION: EGD with biopsy SURGEON: MADHAVI STRATTON ANESTHESIA: LMAC TISSUE REMOVED OR ALTERED: As noted above COMPLICATIONS: None. ESTIMATED BLOOD LOSS: None. INTRAOPERATIVE FINDINGS: As noted above. PROCEDURE: Patient tolerated the procedure well. No immediate postprocedure complications are noted. Patient is discharged in good condition. Discharge date 12/10/2018. Discharge diet: Regular. Discharge activity: Regular. 2 to 3-week follow-up to discuss findings. Patient is instructed to call the office or proceed to the emergency room should there be any further problems or questions. Wait on the pathology.
[2018-12-10 15:16] VITALS: BP 112/70
== END 2018-12-10 15:19 | disposition home or self-care (01) ==
LOC: OROUT 11:06
PROVIDERS: ATTEND Internal Medicine Gastroenterology
DX: K29.50 Unspecified chronic gastritis without bleeding (principal); R63.4 Abnormal weight loss; F17.210 Nicotine dependence, cigarettes, uncomplicated; Z79.899 Other long term (current) drug therapy
CPT/HCPCS: 43239; 88305 ×2; 00731; J2704; 731

== ENCOUNTER → 2018-12-17 | Outpatient (CLI) | payer OTHER ==
--- NOTE | 2018-12-17 08:26 | RADIOLOGY REPORT (SQ) ---
EXAM DESCRIPTION: CTA ABDOMEN COMPLETED DATE/TIME: 12/17/2018 8:06 am REASON FOR STUDY: RUQ PAIN (R10.11), ABN WEIGHT LOSS (R63.4) R10.11 RIGHT UPPER QUADRANT PAIN R63.4 ABNORMAL WEIGHT LOSS COMPARISON: None. TECHNIQUE: CT scan of the abdominal aorta extending to the iliac bifurcation performed with intraven ous contrast using helical scanning technique with dynamic intravenous contrast injection. Images rev iewed with lung, soft tissue, and bone windows. Reconstructed coronal and sagittal MPR images reviewe d. All images stored on PACS. Advanced 3D imaging as volume rendering, MIPS, SSD performed? yes All CT scanners at this facility use dose modulation, iterative reconstruction, and/or weight based d osing when appropriate to reduce radiation dose to as low as reasonably achievable (ALARA). [facility]: Dose Right [facility]: CareDose [facility]: Dose Right [facility]: Teradose 4D [facility]: Dianwoba CONTRAST TYPE AND DOSE: contrast/concentration: Isovue 350.00 mg/ml; Total Contrast Delivered: 51.0 ml; Total Saline Delivered: 80.0 ml RENAL FUNCTION: Creatinine 0.9 LIMITATIONS: None. FINDINGS: NON-CONTRASTED IMAGING: Post contrast images only. POST-CONTRAST IMAGING: AORTA AND VESSELS: No aneurysm. No dissection. Renal arteries, SMA, celiac without stenosis. LUNG BASES: No significant findings. No nodules or infiltrates. LIVER: Normal size. No masses or dilated ducts. SPLEEN: Normal size. No focal lesions. PANCREAS: No masses. No significant calcifications. No adjacent inflammation or peripancreatic fluid collections. Pancreatic duct not dilated. GALLBLADDER: No identified stones by CT criteria. No inflammatory changes to suggest cholecystitis. ADRENAL GLANDS: No significant masses or asymmetry. RIGHT KIDNEY AND URETER: No mass, calculi or urinary tract obstruction. LEFT KIDNEY AND URETER: No mass, calculi or urinary tract obstruction. RETROPERITONEUM: No retroperitoneal adenopathy, hemorrhage or masses. BOWEL AND PERITONEAL CAVITY: No masses or inflammatory changes. No free fluid or peritoneal masses. APPENDIX: Normal. ABDOMINAL WALL: No masses. No hernias. BONY STRUCTURES: No significant or acute findings. 3-D IMAGING: Confirms the above findings. OTHER: No other significant finding. IMPRESSION: NO ABDOMINAL AORTIC ANEURYSM, DISSECTION OR SIGNIFICANT STENOSIS. NO SIGNIFICANT FINDING S IN THE ABDOMEN. TECHNICAL DOCUMENTATION: JOB ID: [id number] Quality ID # [id number]: Final reports with documentation of one or more dose reduction techniques (e.g., Au tomated exposure control, adjustment of the mA and/or kV according to patient size, use of iterative reconstruction technique) 2010 [employer]- All Rights Reserved Reading location - IP/workstation name: [email or web address]
--- NOTE | 2018-12-17 10:21 | RADIOLOGY REPORT (SQ) ---
EXAM DESCRIPTION: NM HIDA SCAN WITH CCK COMPLETED DATE/TIME: 12/17/2018 10:05 am REASON FOR STUDY: RUQ PAIN (R10.11), ABN WEIGHT LOSS (R63.4) R10.11 RIGHT UPPER QUADRANT PAIN R63.4 ABNORMAL WEIGHT LOSS COMPARISON: None. RADIONUCLIDE AND DOSE: DOSAGE RADIONUCLIDE: 5.35 millicuries Tc99m Mebrofenin. DOSAGE CCK: 1.5 micrograms. DOSAGE MORPHINE: Not required. The route of agent administration: Intravenous TECHNIQUE: Serial imaging right upper quadrant up to 60 minutes following injection of radionuclide. CCK injected after gallbladder visualized. LIMITATIONS: None. FINDINGS: LIVER: Normal visualization without areas of photopenia. INTRAHEPATIC BILE DUCTS: Normal size and no delay in visualization. COMMON BILE DUCT: Normal without dilatation. GALLBLADDER: Normal visualization. Calculated ejection fraction of 93%. Normal range is greater th an 35%. PHYSICAL RESPONSE: Patients presenting complaint was reproduced. OTHER: No other significant finding. IMPRESSION: Normal study without cystic or common bile duct obstruction. Normal ejection fraction. The patient's symptoms were reproduced with CCK administration. TECHNICAL DOCUMENTATION: JOB ID: [id number] [employer]- All Rights Reserved Reading location - IP/workstation name: [email or web address]
== END ==
LOC: RAD 07:28
PROVIDERS: ATTEND Internal Medicine Gastroenterology
DX: R10.11 Right upper quadrant pain (principal); R63.4 Abnormal weight loss
CPT/HCPCS: 82565; 78227; 74175; J2805; A9537; Q9969

== ENCOUNTER → 2019-04-29 | Outpatient (CLI) | payer OTHER ==
--- NOTE | 2019-04-29 15:28 | RADIOLOGY REPORT (SQ) ---
EXAM DESCRIPTION: HIP BILATERAL COMPLETED DATE/TIME: 04/29/2019 12:59 pm REASON FOR STUDY: RIGHT HIP PAIN COMPARISON: None. NUMBER OF VIEWS: Two views. TECHNIQUE: AP pelvis and additional frog-leg view of the right and left hip. LIMITATIONS: None. FINDINGS: MINERALIZATION: Normal. PRIMARY HIP: No fracture or dislocation. No worrisome bone lesions. OPPOSITE HIP: No fracture or dislocation. No worrisome bone lesions. PUBIS AND ISCHIUM: No fracture. PELVIS: No fracture. SACRUM: No fracture or dislocation. No worrisome bone lesions. LOWER LUMBAR SPINE: No fracture or dislocation. No worrisome bone lesions. No significant disc disea se. SOFT TISSUES: No findings. OTHER: No other significant finding. IMPRESSION: NEGATIVE STUDY OF THE RIGHT AND LEFT HIPS AND PELVIS. NO RADIOGRAPHIC EVIDENCE OF ACUTE INJURY. NO EXPLANATION FOR PAIN. TECHNICAL DOCUMENTATION: JOB ID: [id number] [employer]- All Rights Reserved Reading location - IP/workstation name: [email or web address]
--- NOTE | 2019-04-29 16:45 | RADIOLOGY REPORT (SQ) ---
EXAM DESCRIPTION: SACROILIAC JOINTS COMPLETED DATE/TIME: 04/29/2019 12:59 pm REASON FOR STUDY: RIGHT SI PAIN COMPARISON: None. NUMBER OF VIEWS: Three views. TECHNIQUE: AP and oblique views of the sacroiliac joints. LIMITATIONS: None. FINDINGS: MINERALIZATION: Normal. BONES: No acute fracture or dislocation. No worrisome bone lesions. No significant osteophytes. JOINTS: The sacroiliac joints are patent. No unusual widening, sclerosis, or fusion. SOFT TISSUES: No soft tissue swelling. No radio-opaque foreign body. OTHER: There is narrowing of the L5-S1 disc space with bridging osteophytes. IMPRESSION: Lumbar degenerative changes. Normal sacroiliac joints. TECHNICAL DOCUMENTATION: JOB ID: [id number] [employer]- All Rights Reserved Reading location - IP/workstation name: [email or web address]
== END ==
LOC: RAD 11:48
PROVIDERS: ATTEND Nurse Practitioner Primary Care
DX: M25.551 Pain in right hip (principal); M47.896 Other spondylosis, lumbar region
CPT/HCPCS: 72200; 73522

== ENCOUNTER 2019-06-10 07:43 | Observation (INO) | payer BC, OTHER ==
[2019-06-10 09:05] LABS: ABSOLUTE LYMPHOCYTES (AUTO) 1.6 10^3/uL (0.5-4.7); ABSOLUTE MONOCYTES (AUTO) 1.4 10^3/uL (0.1-1.4); ABSOLUTE NEUT (AUTO) 12.9 10^3/uL (1.7-8.2); BASOPHILS % (AUTO) 0.3 % (0-2); HEMATOCRIT 47.5 % (37.9-51.0); HEMOGLOBIN 16.5 g/dL (13.5-17.0); LYMPHOCYTES % (AUTO) 9.8 % (13-45); MEAN CORPUSCULAR HEMOGLOBIN 30.9 pg (27.0-33.4); MEAN CORPUSCULAR HGB CONC 34.8 g/dL (32.0-36.0); MEAN CORPUSCULAR VOLUME 89 fl (80-97); MONOCYTES % (AUTO) 8.7 % (3-13); PLATELET COUNT 293 10^3/uL (150-450); RED BLOOD COUNT 5.35 10^6/uL (4.35-5.55); RED CELL DISTRIBUTION WIDTH 13.6 % (11.5-14.0); SEGMENTED NEUTROPHILS % (AUTO) 81.2 % (42-78); TOTAL CELLS COUNTED % (AUTO) 100 %; WHITE BLOOD COUNT 15.9 10^3/uL (4.0-10.5)
[2019-06-10 09:37] LABS: APPEARANCE,URINE CLOUDY; BILIRUBIN,URINE NEGATIVE (NEGATIVE); COLOR,URINE YELLOW; GLUCOSE, URINE NEGATIVE (NEGATIVE); KETONES,URINE NEGATIVE (NEGATIVE); LEUKOCYTE ESTERASE,URINE NEGATIVE (NEGATIVE); NITRITE,URINE NEGATIVE (NEGATIVE); PROTEIN,URINE 30 mg/dL (NEGATIVE); URINE SPECIFIC GRAVITY 1.023; UROBILINOGEN,URINE NEGATIVE mg/dL (<2.0)
[2019-06-10 09:38] LABS: CREATINE KINASE MB 5.64 ng/mL (<4.55)
[2019-06-10 09:40] LABS: TROPONIN I < 0.012 ng/mL
[2019-06-10] MEDS ORDERED: MORPHINE SULFATE 10 MG/ML INJ IV ONE (09:44)
[2019-06-10] MEDS ORDERED: NORMAL SALINE 1000 ML 1,000 ML IV ONE ×2 (09:44→11:56)
[2019-06-10] MEDS ORDERED: ONDANSETRON HCL INJ/PF 4 MG/2 ML SDV IV ONE (09:44)
--- NOTE | 2019-06-10 09:55 | ER Document Report ---
ED GI/ - General Chief Complaint: Abdominal Pain Stated Complaint: WEAKNESS Time Seen by Provider: 06/10/19 09:09 Primary Care Provider: MICKEY MCCRACKEN MD [Primary Care Provider] - Follow up as needed Notes: HPI: Patient is a 39-year-old male who presents with the onset 5 days ago of some abdominal discomfort mostly to the upper abdomen radiating to the chest as well as nausea and vomiting. He states he is vomited around 100 times. He states diarrhea x1. Patient states he has had intermittent abdominal pain for "16 years". Patient has been seen here multiple times for abdominal discomfort with an unremarkable ultrasound and recent CT scan in December 2018 showing no acute abnormalities. No recent trips or travel. No recent antibiotics. Patient states a few years back he did have a small bowel obstruction requiring surgery. He states it was laparoscopically. Patient also states some bilateral lower back pain. He denies any radiation down his legs. He denies any dysuria or incontinence. Patient has been afebrile. Patient denies any shortness of breath, cough, runny nose, or congestion. ROS: See HPI All other review of systems reviewed and otherwise negative Reviewed vital signs and nursing note as charted by RN. PHYSICAL EXAM: CONSTITUTIONAL: Alert and oriented and responds appropriately to questions. Patient appears to be in pain HEAD: Normocephalic; atraumatic EYES: PERRL; Conjunctivae clear, sclerae non-icteric ENT: Normal nose; no rhinorrhea; moist mucous membranes; pharynx without lesions noted NECK: Supple without meningismus; non-tender; no cervical lymphadenopathy, no masses CARD: Regular rate and rhythm; no murmurs; symmetric distal pulses RESP: Normal chest excursion without splinting or tachypnea; breath sounds clear and equal bilaterally ABD/GI: Normal bowel sounds; non-distended; soft, mild tenderness diffusely without rebound or guarding. No palpable masses BACK: The back appears normal and is non-tender to palpation EXT: Normal ROM in all joints; non-tender to palpation; no edema SKIN: No acute lesions noted NEURO: CN 2-12 intact; 5/5 bilateral upper and lower extremity strength with sensation intact to light touch TRAVEL OUTSIDE OF THE [place] IN LAST 30 DAYS: No - Related Data Allergies/Adverse Reactions: oxycodone [Oxycodone] Allergy (Unknown, Verified 12/24/13 11:50) hydrocodone [Hydrocodone] Adverse Reaction (Mild, Verified 12/23/13 03:37) Nausea Past Medical History - Social History Smoking Status: Current Every Day Smoker Chew tobacco use (# tins/day): No Frequency of alcohol use: None Drug Abuse: None Family History: None, Other - Intestinal problems Patient has suicidal ideation: No Patient has homicidal ideation: No - Past Medical History Cardiac Medical History: Denies: Hx Coronary Artery Disease, Hx Heart Attack, Hx Hypertension Pulmonary Medical History: Reports: Hx Asthma - as child Denies: Hx Bronchitis, Hx COPD, Hx Pneumonia, Hx Tuberculosis Neurological Medical History: Denies: Hx Cerebrovascular Accident, Hx Seizures Renal/ Medical History: Reports: Hx Kidney Stones. Denies: Hx Peritoneal Dialysis GI Medical History: Reports: Hx Crohn's Disease - undiagnnosed, Hx Gastroesophageal Reflux Disease, Hx Irritable Bowel Musculoskeletal Medical History: Denies Hx Arthritis Past Surgical History: Reports: Hx Abdominal Surgery. Denies: Hx Pacemaker, Hx Tonsillectomy - Immunizations Hx Diphtheria, Pertussis, Tetanus Vaccination: Yes Physical Exam - Vital signs Vitals: Resp Pulse Ox 8 L 98 06/10/19 08:17 06/10/19 08:17 Course - Re-evaluation Re-evalutation: Given the above history and physical, we will obtain basic labs, liver panel, lipase, x-ray of the chest, cardiac panel, and a CT scan of the abdomen and pelvis. I will provide nausea medications and fluids. I do believe PE, ACS, dissection to be unlikely. Patient appears to have some intermittent abdominal pain with similar symptoms in the past. We will continue to reassess. EKG shows a heart of 66, normal sinus rhythm, no ST elevation or depression. Inverted T waves in lead aVL. Compared to the previous EKG in November 2018 I see no appreciable change. 06/10/19 09:54 Labs thus far as recorded. Fluids are infusing. 06/10/19 10:50 Labs as recorded. Total CK is elevated. Liter of fluid has been provided. A chemistry was not ordered in triage. We have called the lab to add on the chemistry. CT is pending. 06/10/19 11:50 Pain is improved. Vomiting has subsided. Positive for marijuana. CT scan of the abdomen and pelvis unremarkable. Patient appears to be in acute renal failure with a normal potassium. Patient will be admitted for gentle rehydration and nausea control. - Vital Signs Vital signs: Temp Pulse Resp BP Pulse Ox 98.2 F 18 144/89 H 98 06/10/19 09:01 06/10/19 10:01 06/10/19 10:01 06/10/19 10:01 - Laboratory Result Diagrams: 06/10/19 08:30 06/10/19 08:30 Laboratory results interpreted by me: 06/10/19 06/10/19 06/10/19 08:30 08:30 08:30 WBC 15.9 H Lymph % (Auto) 9.8 L Absolute Neuts (auto) 12.9 H Seg Neutrophils % 81.2 H Sodium Chloride Anion Gap BUN Creatinine Est GFR ( Amer) Est GFR (MDRD) Non-Af Glucose Total Bilirubin Creatine Kinase 1074 H CK-MB (CK-2) 5.64 H Total Protein Albumin Urine Protein Urine Blood 06/10/19 06/10/19 06/10/19 08:30 08:30 09:14 WBC Lymph % (Auto) Absolute Neuts (auto) Seg Neutrophils % Sodium 132.7 L Chloride 87 L Anion Gap 24 H BUN 76 H Creatinine 4.05 H Est GFR ( Amer) 20 L Est GFR (MDRD) Non-Af 17 L Glucose 114 H Total Bilirubin 1.4 H Creatine Kinase CK-MB (CK-2) Total Protein 9.3 H Albumin 5.6 H Urine Protein 30 H Urine Blood MODERATE H Critical Care Note - Critical Care Note Total time excluding time spent on procedures (mins): 35 Discharge - Discharge Clinical Impression: Vomiting Qualifiers: Vomiting type: unspecified Vomiting Intractability: intractable Nausea presence: with nausea Qualified Code(s): R11.2 - Nausea with vomiting, unspecified Abdominal pain Qualifiers: Abdominal location: epigastric Qualified Code(s): R10.13 - Epigastric pain Acute renal failure Qualifiers: Acute renal failure type: unspecified Qualified Code(s): N17.9 - Acute kidney failure, unspecified Condition: Fair Disposition: ADMITTED INPATIENT Admitting Provider: Mimi (Hospitalist) Unit Admitted: Medical Floor Referrals: MICKEY MCCRACKEN MD [Primary Care Provider] - Follow up as needed
[2019-06-10 10:02] LABS: ALBUMIN 5.6 g/dL (3.5-5.0); ALKALINE PHOSPHATASE 56 U/L (38-126); ASPARTATE AMINO TRANSFERASE 39 U/L (17-59); BILIRUBIN,DIRECT 0.3 mg/dL (0.0-0.4); BILIRUBIN,TOTAL 1.4 mg/dL (0.2-1.3); TOTAL PROTEIN 9.3 g/dL (6.3-8.2)
[2019-06-10 10:46] LABS: URINE AMPHETAMINES SCREEN NEGATIVE; URINE BARBITURATES SCREEN NEGATIVE; URINE BENZODIAZEPINES SCREEN NEGATIVE; URINE COCAINE SCREEN NEGATIVE; URINE METHADONE SCREEN NEGATIVE; URINE PHENCYCLIDINE SCREEN NEGATIVE
[2019-06-10 10:51] LABS: URINE MARIJUANA (THC) SCREEN UNCONFIRMED POSITIVE
[2019-06-10 11:13] LABS: BLOOD UREA NITROGEN 76 mg/dL (7-20); CALCIUM 9.8 mg/dL (8.4-10.2); CARBON DIOXIDE 22 mmol/L (22-30); GLUCOSE 114 mg/dL (75-110); POTASSIUM 4.3 mmol/L (3.6-5.0)
[2019-06-10 11:19] LABS: ANION GAP 24 (5-19); CHLORIDE 87 mmol/L (98-107)
--- NOTE | 2019-06-10 11:28 | RADIOLOGY REPORT (SQ) ---
EXAM DESCRIPTION: CT ABD/PELVIS WITH IV ONLY COMPLETED DATE/TIME: 06/10/2019 10:59 am REASON FOR STUDY: 6; abdominal discomfort with vomiting and diarrhea COMPARISON: 12/03/2018. TECHNIQUE: CT scan of the abdomen and pelvis performed using helical scanning technique with dynamic intravenous contrast injection. No oral contrast. Images reviewed with lung, soft tissue, and bone windows. Reconstructed coronal and sagittal MPR images reviewed. Delayed images for evaluation of the urinary system also acquired. All images stored on PACS. All CT scanners at this facility use dose modulation, iterative reconstruction, and/or weight based d osing when appropriate to reduce radiation dose to as low as reasonably achievable (ALARA). [facility]: Dose Right [facility]: CareDose [facility]: Dose Right [facility]: Teradose 4D [facility]: [email or web address] CONTRAST TYPE AND DOSE: contrast/concentration: Isovue 350.00 mg/ml; Total Contrast Delivered: 80.0 ml; Total Saline Delivered: 65.0 ml RENAL FUNCTION: GFR > 60. RADIATION DOSE: CT Rad equipment meets quality standard of care and radiation dose reduction techniq ues were employed. CTDIvol: 5.3 - 6.5 mGy. DLP: 628 mGy-cm.. LIMITATIONS: None. FINDINGS: LOWER CHEST: No significant findings. No nodules or infiltrates. LIVER: Mild heterogeneous early enhancement, suspect fatty infiltration of the liver. This normalize s with delayed scanning. At least 1 stable suspected subcentimeter cyst in the anterior liver. No d uct dilatation. SPLEEN: Normal size. No focal lesions. PANCREAS: No masses. No significant calcifications. No adjacent inflammation or peripancreatic fluid collections. Pancreatic duct not dilated. GALLBLADDER: No identified stones by CT criteria. No inflammatory changes to suggest cholecystitis. ADRENAL GLANDS: No significant masses or asymmetry. RIGHT KIDNEY AND URETER: No solid masses. No significant calcification. No hydronephrosis or hydroure ter. LEFT KIDNEY AND URETER: No solid masses. No significant calcification. No hydronephrosis or hydrouret er. AORTA AND VESSELS: No aneurysm. No dissection. Renal arteries, SMA, celiac without stenosis. RETROPERITONEUM: No retroperitoneal adenopathy, hemorrhage or masses. BOWEL AND PERITONEAL CAVITY: No masses or inflammatory changes. No free fluid or peritoneal masses. APPENDIX: Normal. PELVIS: No mass. No free fluid. Normal bladder. ABDOMINAL WALL: No masses. No hernias. BONES: Degenerative disc disease at the lumbosacral junction. Bones intact. OTHER: No other significant finding. IMPRESSION: 1. No acute abdominopelvic abnormality appreciated. 2. Heterogeneous liver. Suspect steatosis. Correlate with labs and clinical followup as warranted. TECHNICAL DOCUMENTATION: JOB ID: [id number] Quality ID # [id number]: Final reports with documentation of one or more dose reduction techniques (e.g., Au tomated exposure control, adjustment of the mA and/or kV according to patient size, use of iterative reconstruction technique) 2010 [employer]- All Rights Reserved Reading location - IP/workstation name: [email or web address]
--- NOTE | 2019-06-10 12:08 | EKG REPORT ---
SEVERITY:- NORMAL ECG - SINUS RHYTHM ST ELEV, PROBABLE NORMAL EARLY REPOL PATTERN : Confirmed by: Damian Macias MD 10-Jun-2019 12:06:48
[2019-06-10] MEDS ORDERED: RINGERS SOLUTION,LACTATED 1,000 ML IV PRN (12:28)
[2019-06-10] MEDS ORDERED: IPRATROPIUM/ALBUTEROL 0.5-2.5 MG/3 ML AMPUL NEB PRN (12:29)
[2019-06-10] MEDS ORDERED: ACETAMINOPHEN 325 MG TABLET PO PRN (12:29)
--- NOTE | 2019-06-10 12:54 | PDOC H&P ---
History of Present Illness Admission Date/PCP: 06/10/19 12:01 MICKEY MCCRACKEN MD History of Present Illness: STEPHANE JORGE is a 39 year old male past medical history of CKD, intussusce ption status post exploratory laparotomy, recurrent abdominal pain with cyclic vomiting, presenting to ED complaining of excessive bilious vomiting for the past several days associated with diffuse abdominal pain, colicky, sharp, 10/10, radiating to chest and back, worse with movement and eating, better with staying still, had one episode of diarrhea. Denies any recent travel, fever, chills, shortness of breath, sore throat, PND, orthopnea, headache, polyuria, polydipsia, dysuria, urgency or hesitancy. Patient used to abuse marijuana in the past which was causing his excessive nausea vomiting and abdominal pain, was admitted at [facility] years ago, where he was told that he is allergic to marijuana. Patient is stating that since then he has been avoiding marijuana however he is exposed to secondhand at work and at home. Patient was noted to be positive for marijuana on UDS and when notified about it he becomes very tearful and defensive and adamantly denies having used marijuana but states that he is exposed to it through secondhand. He is also stating that when he is exposed to secondhand he does feel that high. CT abdomen negative for any acute abnormalities however noted to have elevated CK, creatinine, and hematuria. Hospitalist consulted for admission. Past Medical History Cardiac Medical History: Denies: Coronary Artery Disease, Myocardial Infarction, Hypertension Pulmonary Medical History: Reports: Asthma - as child Denies: Bronchitis, Chronic Obstructive Pulmonary Disease (COPD), Pneumonia, Tuberculosis Neurological Medical History: Denies: Seizures GI Medical History: Reports: Crohn's Disease - undiagnnosed, Gastroesophageal Reflux Disease Musculoskeltal Medical History: Denies: Arthritis Hematology: Denies: Anemia Past Surgical History Past Surgical History: Denies: Pacemaker, Tonsillectomy Social History Smoking Status: Current Every Day Smoker Electronic Cigarette use?: No Frequency of Alcohol Use: None Hx Recreational Drug Use: No Drugs: Marijuana Hx Prescription Drug Abuse: No Family History Family History: None, Other - Intestinal problems Parental Family History Reviewed: Yes Children Family History Reviewed: Yes Sibling(s) Family History Reviewed.: Yes Medication/Allergy Home Medications: Dicyclomine HCl [Bentyl 10 mg Capsule] 10 mg PO BID 12/10/18 Sucralfate [Carafate 1 gm Tablet] 1 gm PO ACHS 12/10/18 Allergies/Adverse Reactions: oxycodone [Oxycodone] Allergy (Unknown, Verified 12/24/13 11:50) hydrocodone [Hydrocodone] Adverse Reaction (Mild, Verified 12/23/13 03:37) Nausea Review of Systems Review of Systems: as per hpi Physical Exam Vital Signs: Temp Pulse Resp BP Pulse Ox 98.2 F 18 144/89 H 98 06/10/19 09:01 06/10/19 10:01 06/10/19 10:01 06/10/19 10:01 Intake & Output 06/09/19 06/10/19 06/11/19 06:59 06:59 06:59 Weight 70.621 kg General appearance: PRESENT: mild distress Head exam: PRESENT: atraumatic, normocephalic Respiratory exam: PRESENT: clear to auscultation loly. ABSENT: rales, rhonchi, wheezes Cardiovascular exam: PRESENT: RRR. ABSENT: diastolic murmur, rubs, systolic murmur GI/Abdominal exam: PRESENT: normal bowel sounds, soft, tenderness. ABSENT: distended, guarding, mass, organolmegaly, rebound Extremities exam: PRESENT: full ROM. ABSENT: calf tenderness, clubbing, pedal edema Neurological exam: PRESENT: alert, awake, oriented to person, oriented to place, oriented to time, oriented to situation, CN II-XII grossly intact. ABSENT: motor sensory deficit Skin exam: PRESENT: dry, intact, warm. ABSENT: cyanosis, rash Results Laboratory Results: 06/10/19 08:30 06/10/19 08:30 06/10/19 06/10/19 06/10/19 08:30 08:30 08:30 WBC 15.9 H RBC 5.35 Hgb 16.5 Hct 47.5 MCV 89 MCH 30.9 MCHC 34.8 RDW 13.6 Plt Count 293 Seg Neutrophils % 81.2 H Sodium 132.7 L Potassium 4.3 Chloride 87 L Carbon Dioxide 22 Anion Gap 24 H BUN 76 H Creatinine 4.05 H Est GFR ( Amer) 20 L Glucose 114 H Calcium 9.8 Total Bilirubin 1.4 H AST 39 Alkaline Phosphatase 56 Total Protein 9.3 H Albumin 5.6 H Lipase 24.7 Urine Color Urine Appearance Urine pH Ur Specific [place] Urine Protein Urine Glucose (UA) Urine Ketones Urine Blood Urine Nitrite Ur Leukocyte Esterase Urine WBC (Auto) Urine RBC (Auto) 06/10/19 09:14 WBC RBC Hgb Hct MCV MCH MCHC RDW Plt Count Seg Neutrophils % Sodium Potassium Chloride Carbon Dioxide Anion Gap BUN Creatinine Est GFR ( Amer) Glucose Calcium Total Bilirubin AST Alkaline Phosphatase Total Protein Albumin Lipase Urine Color YELLOW Urine Appearance CLOUDY Urine pH 5.0 Ur Specific [place] 1.023 Urine Protein 30 H Urine Glucose (UA) NEGATIVE Urine Ketones NEGATIVE Urine Blood MODERATE H Urine Nitrite NEGATIVE Ur Leukocyte Esterase NEGATIVE Urine WBC (Auto) 7 Urine RBC (Auto) 2 06/10/19 06/10/19 08:30 08:30 Creatine Kinase 1074 H CK-MB (CK-2) 5.64 H Troponin I < 0.012 Impressions: Abdomen/Pelvis CT 06/10/19 09:45 IMPRESSION: 1. No acute abdominopelvic abnormality appreciated. 2. Heterogeneous liver. Suspect steatosis. Correlate with labs and clinical followup as warranted. Assessment and Plan - Diagnosis (1) Acute kidney injury superimposed on CKD Is this a current diagnosis for this admission?: Yes Plan: Prerenal most likely due to low p.o. intake. History of CKD with baseline of 1-2. Presented with creatinine of 4.05. Admit to medical floor, aggressive volume resuscitation guided by volume status, strict in and out, monitor volume status and electrolytes, replace as needed, avoid nephrotoxic meds. CMP tomorrow. (2) Nausea & vomiting Qualifiers: Vomiting Intractability: intractable Is this a current diagnosis for this admission?: Yes Plan: Patient likely suffers from cyclic vomiting likely caused by marijuana abuse. UDS positive for marijuana however patient adamantly denies abusing marijuana stating that he is exposed to secondhand. Patient is stating that he was admitted for nausea vomiting caused by marijuana at [facility] 5 years ago and he was told that he is allergic. Patient denying any marijuana abuse but does state that he is exposed to it secondhand at work at home. Admit to floor, antiemetics, monitor volume status and electrolytes. 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 Denies any trauma or immobility. Admit to floor, aggressive volume resuscitation guided by volume status. CK level tomorrow. (4) Hepatic steatosis Is this a current diagnosis for this admission?: Yes Plan: History of EtOH abuse. Has been sober for several years. Advised on abstinence. Avoid hepatotoxic meds. Outpatient PCP follow-up for LFT monitoring. (5) Abdominal pain Qualifiers: Abdominal location: generalized Qualified Code(s): R10.84 - Generalized abdominal pain Is this a current diagnosis for this admission?: Yes Plan: Likely due to excessive nausea vomiting. CT abdomen negative for any acute abnormalities. Plan as per above. (6) Dehydration Is this a current diagnosis for this admission?: Yes Plan: Due to low p.o. intake output nausea vomiting. Plan as per above.
[2019-06-10] MEDS: ONDANSETRON HCL INJ/PF 4 MG/2 ML SDV IV PRN ×2 (14:34→19:19)
[2019-06-10] MEDS: MORPHINE SULFATE 10 MG/ML INJ IV PRN ×2 (14:34→20:32)
[2019-06-10] MEDS: RINGERS SOLUTION,LACTATED 1,000 ML IV PRN ×3 (14:36→23:53)
[2019-06-10] MEDS: HEPARIN SOD (PORCINE) 5,000 UNIT/ML 1 ML VIAL SUBCUT SCH ×2 (16:01→21:57)
[2019-06-10] MEDS: PANTOPRAZOLE SODIUM 40 MG TABLET.DR PO SCH (16:06)
[2019-06-10] MEDS: PROMETHAZINE HCL INJ 25 MG/1 ML VIAL IV PRN (16:07)
[2019-06-10] MEDS: DOCUSATE SODIUM 100 MG/10 ML UDC PO SCH (19:51)
[2019-06-11] MEDS: PROMETHAZINE HCL INJ 25 MG/1 ML VIAL IV PRN ×2 (02:28→09:29)
[2019-06-11] MEDS: RINGERS SOLUTION,LACTATED 1,000 ML IV PRN ×3 (04:00→12:49)
[2019-06-11] MEDS: PANTOPRAZOLE SODIUM 40 MG TABLET.DR PO SCH ×2 (05:20→16:31)
[2019-06-11] MEDS: HEPARIN SOD (PORCINE) 5,000 UNIT/ML 1 ML VIAL SUBCUT SCH ×3 (05:20→22:38)
[2019-06-11 05:33] LABS: ABSOLUTE LYMPHOCYTES (AUTO) 1.9 10^3/uL (0.5-4.7); ABSOLUTE MONOCYTES (AUTO) 1.5 10^3/uL (0.1-1.4); ABSOLUTE NEUT (AUTO) 6.1 10^3/uL (1.7-8.2); BASOPHILS % (AUTO) 0.2 % (0-2); EOSINOPHILS % (AUTO) 0.3 % (0-6); HEMATOCRIT 39.7 % (37.9-51.0); LYMPHOCYTES % (AUTO) 20.3 % (13-45); MEAN CORPUSCULAR HEMOGLOBIN 31.6 pg (27.0-33.4); MEAN CORPUSCULAR VOLUME 90 fl (80-97); MONOCYTES % (AUTO) 15.4 % (3-13); PLATELET COUNT 225 10^3/uL (150-450); RED CELL DISTRIBUTION WIDTH 13.4 % (11.5-14.0); SEGMENTED NEUTROPHILS % (AUTO) 63.8 % (42-78); TOTAL CELLS COUNTED % (AUTO) 100 %; WHITE BLOOD COUNT 9.6 10^3/uL (4.0-10.5)
[2019-06-11 05:37] LABS: HEMOGLOBIN 13.9 g/dL (13.5-17.0)
[2019-06-11 05:50] LABS: ALBUMIN 3.9 g/dL (3.5-5.0); ALKALINE PHOSPHATASE 42 U/L (38-126); ASPARTATE AMINO TRANSFERASE 39 U/L (17-59); BILIRUBIN,DIRECT 0.1 mg/dL (0.0-0.4); BILIRUBIN,TOTAL 1.3 mg/dL (0.2-1.3); CHLORIDE 96 mmol/L (98-107); CREATINE KINASE 917 U/L (55-170); GLUCOSE 102 mg/dL (75-110); TOTAL PROTEIN 6.7 g/dL (6.3-8.2)
[2019-06-11 06:16] LABS: POTASSIUM 4.4 mmol/L (3.6-5.0)
[2019-06-11 06:23] LABS: ANION GAP 9 (5-19); BLOOD UREA NITROGEN 38 mg/dL (7-20); CARBON DIOXIDE 31 mmol/L (22-30)
[2019-06-11] MEDS: MORPHINE SULFATE 10 MG/ML INJ IV PRN (09:23)
[2019-06-11] MEDS: DOCUSATE SODIUM 100 MG/10 ML UDC PO SCH ×3 (09:34→18:00)
[2019-06-11] MEDS ORDERED: NICOTINE 7 MG/24 HR PATCH.TD24 TD SCH (10:00)
--- NOTE | 2019-06-11 15:26 | PDOC PROGRESS REPORT ---
Subjective Progress Note for:: 06/11/19 Subjective:: STEPHANE JORGE is a 39 year old male past medical history of CKD, in tussusception status post exploratory laparotomy, recurrent abdominal pain with cyclic vomiting, presenting to ED complaining of excessive bilious vomiting for the past several days associated with diffuse abdominal pain, colicky, sharp, 10/10, radiating to chest and back, worse with movement and eating, better with staying still, had one episode of diarrhea. Denies any recent travel, fever, chills, shortness of breath, sore throat, PND, orthopnea, headache, polyuria, polydipsia, dysuria, urgency or hesitancy. Patient used to abuse marijuana in the past which was causing his excessive nausea vomiting and abdominal pain, [facility], where he was told that he is allergic to marijuana. Patient is stating that since then he has been avoiding marijuana however he is exposed to secondhand at work and at home. Patient was noted to be positive for marijuana on UDS and when notified about it he becomes very tearful and defensive and adamantly denies having used marijuana but states that he is exposed to it through secondhand. He is also stating that when he is exposed to secondhand he does feel that high. CT abdomen negative for any acute abnormalities however noted to have elevated CK, creatinine, and hematuria. Hospitalist consulted for admission. No acute events overnight. Patient still complaining of diffuse abdominal pain and nausea, has not been able to eat due to very low appetite, is passing flatus, kidney function has improved significantly, denies any fever, chills, chest pain, shortness of breath or any urinary symptoms. Reason For Visit: SEAN,N/V Physical Exam Vital Signs: Temp Pulse Resp BP Pulse Ox 98.6 F 62 16 136/64 H 100 06/11/19 11:17 06/11/19 11:17 06/11/19 11:17 06/11/19 11:17 06/11/19 11:17 Intake & Output 06/10/19 06/11/19 06/12/19 06:59 06:59 06:59 Intake Total 4940 1946 Balance 4940 1946 Weight 75.3 kg General appearance: PRESENT: no acute distress, well-developed, well-nourished Head exam: PRESENT: atraumatic, normocephalic Respiratory exam: PRESENT: clear to auscultation loly. ABSENT: rales, rhonchi, wheezes Cardiovascular exam: PRESENT: RRR. ABSENT: diastolic murmur, rubs, systolic murmur GI/Abdominal exam: PRESENT: normal bowel sounds, soft, tenderness - Diffuse. ABSENT: distended, mass, organolmegaly, rebound Neurological exam: PRESENT: alert, awake, oriented to person, oriented to place, oriented to time, oriented to situation, CN II-XII grossly intact. ABSENT: motor sensory deficit Results Laboratory Results: 06/11/19 04:55 06/11/19 04:55 06/11/19 06/11/19 04:55 04:55 WBC 9.6 RBC 4.40 Hgb 13.9 D Hct 39.7 MCV 90 MCH 31.6 MCHC 35.0 RDW 13.4 Plt Count 225 Seg Neutrophils % 63.8 Sodium 135.5 L Potassium 4.4 Chloride 96 L Carbon Dioxide 31 H Anion Gap 9 BUN 38 H D Creatinine 1.34 H Est GFR ( Amer) > 60 Glucose 102 Calcium 9.0 Magnesium 2.4 H Total Bilirubin 1.3 AST 39 Alkaline Phosphatase 42 Total Protein 6.7 Albumin 3.9 06/10/19 06/10/19 06/11/19 08:30 08:30 04:55 Creatine Kinase 1074 H 917 H CK-MB (CK-2) 5.64 H Troponin I < 0.012 Impressions: Abdomen/Pelvis CT 06/10/19 09:45 IMPRESSION: 1. No acute abdominopelvic abnormality appreciated. 2. Heterogeneous liver. Suspect steatosis. Correlate with labs and clinical followup as warranted. Assessment and Plan - Diagnosis (1) Acute kidney injury superimposed on CKD Is this a current diagnosis for this admission?: Yes Plan: Moderate improvement. Creatinine back to baseline. Prerenal most likely due to low p.o. intake. History of CKD with baseline of 1-2. Presented with creatinine of 4.05. Continue volume resuscitation guided by volume status, strict in and out, monitor volume status and electrolytes, replace as needed, avoid nephrotoxic meds. CMP tomorrow. (2) Nausea & vomiting Qualifiers: Vomiting Intractability: intractable Is this a current diagnosis for this admission?: Yes Plan: Still complaining of nausea and p.o. intolerance. Has not vomited. Patient likely suffers from cyclic vomiting likely caused by marijuana abuse. UDS positive for marijuana however patient adamantly denies abusing marijuana stating that he is exposed to secondhand. Patient is stating that he was admitted for nausea vomiting caused by marijuana at [facility] 5 years ago and he was told that he is allergic. Patient denying any marijuana abuse but does state that he is exposed to it se condhand at work at home. Continue antiemetics, monitor volume status and electrolytes. (3) Rhabdomyolysis Qualifiers: Rhabdomyolysis type: non-traumatic Qualified Code(s): M62.82 - Rhabdomyolysis Is this a current diagnosis for this admission?: Yes Plan: CK 917. Trending down from admission. 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 Denies any trauma or immobility. Continue volume resuscitation guided by volume status. CK level tomorrow. (4) Hepatic steatosis Is this a current diagnosis for this admission?: Yes Plan: History of EtOH abuse. Has been sober for several years. Advised on abstinence. Avoid hepatotoxic meds. Outpatient PCP follow-up for LFT monitoring. (5) Abdominal pain Qualifiers: Abdominal location: generalized Qualified Code(s): R10.84 - Generalized abdominal pain Is this a current diagnosis for this admission?: Yes Plan: Still complaining of diffuse abdominal pain. Improved compared to yesterday. Likely due to excessive nausea vomiting. CT abdomen negative for any acute abnormalities. Plan as per above. (6) Dehydration Is this a current diagnosis for this admission?: Yes Plan: Volume replete. Due to low p.o. intake output nausea vomiting. Plan as per above.
[2019-06-11] MEDS ORDERED: POLYETHYLENE GLYCOL 3350 POWDER 17 GM/1 PACKET PO ONE (16:00)
[2019-06-11 18:03] LABS: ANION GAP 9 (5-19); BLOOD UREA NITROGEN 26 mg/dL (7-20); CALCIUM 9.1 mg/dL (8.4-10.2); CARBON DIOXIDE 29 mmol/L (22-30); CHLORIDE 99 mmol/L (98-107); GLUCOSE 102 mg/dL (75-110); POTASSIUM 4.3 mmol/L (3.6-5.0)
[2019-06-12] MEDS: PANTOPRAZOLE SODIUM 40 MG TABLET.DR PO SCH (05:41)
[2019-06-12] MEDS: HEPARIN SOD (PORCINE) 5,000 UNIT/ML 1 ML VIAL SUBCUT SCH (05:42)
[2019-06-12 06:04] LABS: ALBUMIN 4.1 g/dL (3.5-5.0); ALKALINE PHOSPHATASE 39 U/L (38-126); ANION GAP 8 (5-19); ASPARTATE AMINO TRANSFERASE 39 U/L (17-59); BILIRUBIN,DIRECT 0.2 mg/dL (0.0-0.4); BILIRUBIN,TOTAL 0.8 mg/dL (0.2-1.3); BLOOD UREA NITROGEN 19 mg/dL (7-20); CALCIUM 9.2 mg/dL (8.4-10.2); CARBON DIOXIDE 33 mmol/L (22-30); CHLORIDE 98 mmol/L (98-107); CREATINE KINASE 736 U/L (55-170); GLUCOSE 81 mg/dL (75-110)
[2019-06-12 08:15] VITALS: BP 135/76
--- NOTE | 2019-06-15 13:42 | PDOC DISCHARGE SUMMARY ---
Impression - Admit/DC Date/PCP Admission Date/Primary Care Provider: 06/10/19 12:01 MICKEY MCCRACKEN MD Discharge Date: 06/12/19 - Discharge Diagnosis (1) Acute kidney injury superimposed on CKD Is this a current diagnosis for this admission?: Yes (2) Nausea & vomiting Is this a current diagnosis for this admission?: Yes (3) Rhabdomyolysis Is this a current diagnosis for this admission?: Yes (4) Hepatic steatosis Is this a current diagnosis for this admission?: Yes (5) Abdominal pain Is this a current diagnosis for this admission?: Yes (6) Dehydration Is this a current diagnosis for this admission?: Yes - Additional Information Resuscitation Status: Full Code Discharge Diet: As Tolerated, Regular Discharge Activity: Activity As Tolerated Referrals: [facility] [Provider Group] - 06/19/19 8:00 am Prescriptions: Ondansetron HCl [Zofran 8 mg Tablet] 8 mg PO Q8HP PRN 7 Days #21 tablet PRN Reason: Home Medications: Ondansetron HCl [Zofran 8 mg Tablet] 8 mg PO Q8HP PRN 7 Days #21 tablet 06/11/19 History of Present Illiness History of Present Illness: STEPHANE JORGE is a 39 year old male past medical history of CKD, intussusception status post exploratory laparotomy, recurrent abdominal pain with cyclic vomiting, presenting to ED complaining of excessive bilious vomiting for the past several days associated with diffuse abdominal pain, colicky, sharp, 10/10, radiating to chest and back, worse with movement and eating, better with staying still, had one episode of diarrhea. Denies any recent travel, fever, chills, shortness of breath, sore throat, PND, orthopnea, headache, polyuria, polydipsia, dysuria, urgency or hesitancy. Patient used to abuse marijuana in the past which was causing his excessive nausea vomiting and abdominal pain, was admitted at [facility] five years ago, where he was told that he is allergic to marijuana. Patient is stating that since then he has been avoiding marijuana however he is exposed to secondhand at work and at home. Patient was noted to be positive for marijuana on UDS and when notified about it he becomes very tearful and defensive and adamantly denies having used marijuana but states that he is exposed to it through secondhand. He is also stating that when he is exposed to secondhand he does feel that high. CT abdomen negative for any acute abnormalities however noted to have elevated CK, creatinine, and hematuria. Hospitalist consulted for admission. Hospital Course Hospital Course: (1) Acute kidney injury superimposed on CKD Resolved. Creatinine WNL. Prerenal most likely due to low p.o. intake. History of CKD with baseline of 1-2. Presented with creatinine of 4.05. Started on volume resuscitation guided by volume status, strict in and out, monitor volume status and electrolytes. Advised to avoid nephrotoxic meds in the future. Outpatient PCP and nephrology follow-up recommended. (2) Nausea & vomiting Resolved. Patient likely suffers from cyclic vomiting likely caused by marijuana abuse. UDS positive for marijuana however patient adamantly denies abusing marijuana stating that he is exposed to secondhand. Patient is stating that he was admitted for nausea vomiting caused by marijuana at [facility] 5 years ago and he was told that he is allergic. Patient denying any marijuana abuse but does state that he is exposed to it secondhand at work at home. Continued on antiemetics. Discharged on Zofran as needed. (3) Rhabdomyolysis CK 470. 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 Denies any trauma or immobility. Started on NS. CK level daily. (4) Hepatic steatosis History of EtOH abuse. Has been sober for several years. Advised on abstinence. Avoid hepatotoxic meds. Outpatient PCP follow-up for LFT monitoring. (5) Abdominal pain Resolved. Likely due to excessive nausea vomiting. CT abdomen negative for any acute abnormalities. Plan as per above. (6) Dehydration Volume replete. Due to low p.o. intake output nausea vomiting. Plan as per above. Physical Exam Vital Signs: Temp Pulse Resp BP Pulse Ox 98.1 F 65 17 135/76 H 100 06/12/19 08:24 06/12/19 08:24 06/12/19 08:24 06/12/19 07:21 06/12/19 08:24 General appearance: PRESENT: no acute distress, well-developed, well-nourished Head exam: PRESENT: atraumatic, normocephalic Eye exam: PRESENT: conjunctiva pink, EOMI, PERRLA. ABSENT: scleral icterus Ear exam: PRESENT: normal external ear exam Mouth exam: PRESENT: moist, tongue midline Neck exam: ABSENT: carotid bruit, JVD, lymphadenopathy, thyromegaly Respiratory exam: PRESENT: clear to auscultation loly. ABSENT: rales, rhonchi, wheezes Cardiovascular exam: PRESENT: RRR. ABSENT: diastolic murmur, rubs, systolic murmur Pulses: PRESENT: normal dorsalis pedis pul Vascular exam: PRESENT: normal capillary refill GI/Abdominal exam: PRESENT: normal bowel sounds, soft. ABSENT: distended, guarding, mass, organolmegaly, rebound, tenderness Rectal exam: PRESENT: deferred Extremities exam: PRESENT: full ROM. ABSENT: calf tenderness, clubbing, pedal edema Neurological exam: PRESENT: alert, awake, oriented to person, oriented to place, oriented to time, oriented to situation, CN II-XII grossly intact. ABSENT: motor sensory deficit Psychiatric exam: PRESENT: appropriate affect, normal mood. ABSENT: homicidal ideation, suicidal ideation Skin exam: PRESENT: dry, intact, warm. ABSENT: cyanosis, rash Results Laboratory Results: WBC 9.6 10^3/uL (4.0-10.5) 06/11/19 04:55 RBC 4.40 10^6/uL (4.35-5.55) 06/11/19 04:55 Hgb 13.9 g/dL (13.5-17.0) D 06/11/19 04:55 Hct 39.7 % (37.9-51.0) 06/11/19 04:55 MCV 90 fl (80-97) 06/11/19 04:55 MCH 31.6 pg (27.0-33.4) 06/11/19 04:55 MCHC 35.0 g/dL (32.0-36.0) 06/11/19 04:55 RDW 13.4 % (11.5-14.0) 06/11/19 04:55 Plt Count 225 10^3/uL (150-450) 06/11/19 04:55 Lymph % (Auto) 20.3 % (13-45) 06/11/19 04:55 [place] % (Auto) 15.4 % (3-13) H 06/11/19 04:55 Eos % (Auto) 0.3 % (0-6) 06/11/19 04:55 Baso % (Auto) 0.2 % (0-2) 06/11/19 04:55 Absolute Neuts (auto) 6.1 10^3/uL (1.7-8.2) 06/11/19 04:55 Absolute Lymphs (auto) 1.9 10^3/uL (0.5-4.7) 06/11/19 04:55 Absolute Monos (auto) 1.5 10^3/uL (0.1-1.4) H 06/11/19 04:55 Absolute Eos (auto) 0.0 10^3/uL (0.0-0.6) 06/11/19 04:55 Absolute Basos (auto) 0.0 10^3/uL (0.0-0.2) 06/11/19 04:55 Seg Neutrophils % 63.8 % (42-78) 06/11/19 04:55 Sodium 139.1 mmol/L (137-145) 06/12/19 04:44 Potassium 4.0 mmol/L (3.6-5.0) 06/12/19 04:44 Chloride 98 mmol/L (98-107) 06/12/19 04:44 Carbon Dioxide 33 mmol/L (22-30) H 06/12/19 04:44 Anion Gap 8 (5-19) 06/12/19 04:44 BUN 19 mg/dL (7-20) 06/12/19 04:44 Creatinine 1.00 mg/dL (0.52-1.25) 06/12/19 04:44 Est GFR ( Amer) > 60 (>60) 06/12/19 04:44 Est GFR (MDRD) Non-Af > 60 (>60) 06/12/19 04:44 Glucose 81 mg/dL (75-110) 06/12/19 04:44 Calcium 9.2 mg/dL (8.4-10.2) 06/12/19 04:44 Magnesium 2.4 mg/dL (1.6-2.3) H 06/12/19 04:44 Total Bilirubin 0.8 mg/dL (0.2-1.3) 06/12/19 04:44 Direct Bilirubin 0.2 mg/dL (0.0-0.4) 06/12/19 04:44 Neonat Total Bilirubin Not Reportable 06/12/19 04:44 Neonat Direct Bilirubin Not Reportable 06/12/19 04:44 Neonat Indirect Bili Not Reportable 06/12/19 04:44 AST 39 U/L (17-59) 06/12/19 04:44 ALT 23 U/L (<50) 06/12/19 04:44 Alkaline Phosphatase 39 U/L (38-126) 06/12/19 04:44 Creatine Kinase 736 U/L (55-170) H 06/12/19 04:44 CK-MB (CK-2) 5.64 ng/mL (<4.55) H 06/10/19 08:30 Troponin I < 0.012 ng/mL 06/10/19 08:30 Total Protein 7.0 g/dL (6.3-8.2) 06/12/19 04:44 Albumin 4.1 g/dL (3.5-5.0) 06/12/19 04:44 Lipase 24.7 U/L (23-300) 06/10/19 08:30 Urine Color YELLOW 06/10/19 09:14 Urine Appearance CLOUDY 06/10/19 09:14 Urine pH 5.0 (5.0-9.0) 06/10/19 09:14 Ur Specific Eloy 1.023 06/10/19 09:14 Urine Protein 30 mg/dL (NEGATIVE) H 06/10/19 09:14 Urine Glucose (UA) NEGATIVE mg/dL (NEGATIVE) 06/10/19 09:14 Urine Ketones NEGATIVE mg/dL (NEGATIVE) 06/10/19 09:14 Urine Blood MODERATE (NEGATIVE) H 06/10/19 09:14 Urine Nitrite NEGATIVE (NEGATIVE) 06/10/19 09:14 Urine Bilirubin NEGATIVE (NEGATIVE) 06/10/19 09:14 Urine Urobilinogen NEGATIVE mg/dL (<2.0) 06/10/19 09:14 Ur Leukocyte Esterase NEGATIVE (NEGATIVE) 06/10/19 09:14 Urine WBC (Auto) 7 /HPF 06/10/19 09:14 Urine RBC (Auto) 2 /HPF 06/10/19 09:14 U Hyaline Cast (Auto) 56 /LPF 06/10/19 09:14 Urine Bacteria (Auto) TRACE /HPF 06/10/19 09:14 Squamous Epi Cells Auto 2 /HPF 06/10/19 09:14 Urine Mucus (Auto) FEW /LPF 06/10/19 09:14 Urine Ascorbic Acid NEGATIVE (NEGATIVE) 06/10/19 09:14 Urine Opiates Screen NEGATIVE 06/10/19 09:14 Urine Methadone Screen NEGATIVE 06/10/19 09:14 Ur Barbiturates Screen NEGATIVE 06/10/19 09:14 Ur Phencyclidine Scrn NEGATIVE 06/10/19 09:14 Ur Amphetamines Screen NEGATIVE 06/10/19 09:14 U Benzodiazepines Scrn NEGATIVE 06/10/19 09:14 Urine Cocaine Screen NEGATIVE 06/10/19 09:14 U Marijuana (THC) Screen UNCONFIRMED POSITIVE 06/10/19 09:14 06/10/19 08:30 CK-MB (CK-2) 5.64 H Troponin I < 0.012 Impressions: Abdomen/Pelvis CT 06/10/19 09:45 IMPRESSION: 1. No acute abdominopelvic abnormality appreciated. 2. Heterogeneous liver. Suspect steatosis. Correlate with labs and clinical followup as warranted. Stroke Is this a Stroke Patient?: No Acute Heart Failure - Is this a Heart Failure Patient?: No
== END 2019-06-12 09:50 | disposition home or self-care (01) ==
LOC: ER 07:43 → INTOOBSV 12:01 → EH 12:01 → 4S 14:06
PROVIDERS: ADMIT Internal Medicine; ATTEND Internal Medicine
DX: N17.9 Acute kidney failure, unspecified (principal); N18.9 Chronic kidney disease, unspecified; R11.2 Nausea with vomiting, unspecified; M62.82 Rhabdomyolysis; K76.0 Fatty (change of) liver, not elsewhere classified; R10.84 Generalized abdominal pain; E86.0 Dehydration; F12.11 Cannabis abuse, in remission; F10.11 Alcohol abuse, in remission; T75.89XA Other specified effects of external causes, initial encounter; X58.XXXA Exposure to other specified factors, initial encounter; R78.89 Finding of other specified substances, not normally found in blood; M54.5 Low back pain; Z87.19 Personal history of other diseases of the digestive system; Z83.79 Family history of other diseases of the digestive system; Z87.442 Personal history of urinary calculi
CPT/HCPCS: 93005; 99291; 96361; 96374; 96375; 36415 ×3; 82553; 82550 ×3; 83690; 83735 ×2; 85025 ×2; 80076; 80048; 80053 ×2; 81001; 84484; 80307; 74177; 93010; G0378 ×4; J1644 ×2; J3490 ×5; J2270 ×2; J2550 ×2; J2405; J7030; J7120 ×2